=== PATIENT | male | born 1985 | race Caucasian/White ===

== ENCOUNTER 2017-08-19 12:27 | Emergency (ER) | payer MEDICAID ==
[2017-08-19 12:32] VITALS: BP 138/79
[2017-08-19] MEDS ORDERED: oxyCOD/ACETAMIN 5 MG/325 MG TABLET PO STA (13:36)
--- NOTE | 2017-08-19 13:38 | ED Physician Documentation ---
PD HPI HEENT - Stated complaint Stated Complaint: TOOTH PX - Chief complaint Chief Complaint: Heent - History obtained from History obtained from: Patient - History of Present Illness Timing - onset: Yesterday (1 days worth of dental pain which is now severe and kept him up all night from a left mandibular premolar, no fevers but he does have mild facial swelling.) Review of Systems Constitutional: denies: Fever, Chills Nose: denies: Rhinorrhea / runny nose, Congestion Throat: denies: Sore throat PD PAST MEDICAL HISTORY - Past Medical History Past Medical History: Yes Cardiovascular: Hypertension Respiratory: None Endocrine/Autoimmune: None GI: None : None Psych: Depression, Post traumatic stress disorder Musculoskeletal: None Derm: None - Past Surgical History Past Surgical History: Yes General: Hiatal hernia repair - Present Medications Home Medications: Ambulatory Orders Medication Instructions Recorded Confirmed Clindamycin [Cleocin] 300 mg PO Q6H 10 Days capsule 08/19/17 Oxycodone HCl/Acetaminophen 1 - 2 tab PO Q4H PRN #15 tablet 08/19/17 [Percocet 5-325 mg Tablet] - Allergies Allergies/Adverse Reactions: Allergies Allergy/AdvReac Type Severity Reaction Status Date / Time prednisone Allergy swelling Verified 08/19/17 13:16 - Social History Does the pt smoke?: Yes Smoking Status: Current every day smoker Does the pt drink ETOH?: Yes Does the pt have substance abuse?: No - Immunizations Immunizations are current?: No Immunizations: TDAP >10years/unknown - POLST Patient has POLST: No PD ED PE NORMAL - Vitals Vital signs reviewed: Yes - General General: Alert and oriented X 3, No acute distress - HEENT HEENT: Other (Generally poor dentition with a lot of big cavities, the tooth in question is a left mandibular premolar which is almost all cavity, and there is very mild overlying facial swelling but no trismus or sublingual edema.) - Neck Neck: Supple, no meningeal sign, No bony TTP - Neuro Neuro: Alert and oriented X 3, Normal speech Results - Vitals Vitals: Vital Signs - 24 hr 08/19/17 12:30 Temperature 36.6 C Heart Rate 100 Respiratory 18 Rate Blood Pressure 138/79 H O2 Saturation 96 Oxygen O2 Source Room air PD MEDICAL DECISION MAKING - Sepsis Event Vital Signs: Vital Signs - 24 hr 08/19/17 12:30 Temperature 36.6 C Heart Rate 100 Respiratory 18 Rate Blood Pressure 138/79 H O2 Saturation 96 Oxygen O2 Source Room air Departure - Departure Disposition: 01 Home, Self Care Clinical Impression: Pain due to dental caries Condition: Good Record reviewed to determine appropriate education?: Yes Instructions: ED Tooth Pain Prescriptions: Clindamycin [Cleocin] 300 mg PO Q6H 10 Days capsule Oxycodone HCl/Acetaminophen [Percocet 5-325 mg Tablet] 1 - 2 tab PO Q4H PRN #15 tablet PRN Reason: Pain Comments: It is very important that you follow-up with a dentist. When it comes to dental problems like yours, the emergency department can only offer a short- term solution to your long-term problem. A couple of low cost options for dental care include: [facility] in [place], calls [phone] for an appointment Or [facility] in [place], call [phone] for an appointment. Do not drink or drive while taking narcotic pain medication. Note that many narcotic pain relievers also contain Tylenol/acetaminophen. Please ensure that your total dose of acetaminophen from all sources does not exceed 3 g (3000 mg) per day. You may get constipated while on this medication. Take a stool softener such as Colace twice a day while you are on it. Also add an [id number] laxative such as senna or MiraLAX on any day that you do not have a bowel movement. If you received a narcotic pain medication or sedative while in the emergency department, do not drive for the next 24 hours. Your blood pressure was elevated today on check into the emergency department. This does not mean that you have hypertension, it is a common phenomenon to come to the emergency department and have elevated blood pressure. I recommend that you see your primary care physician within the week to have it rechecked when you are feeling better.
== END 2017-08-19 13:41 | disposition home or self-care (01) ==
LOC: ED 12:27
DX: K08.89 Other specified disorders of teeth and supporting structures (principal); K02.9 Dental caries, unspecified; I10 Essential (primary) hypertension; F17.200 Nicotine dependence, unspecified, uncomplicated
CPT/HCPCS: 99283; A9270

== ENCOUNTER 2018-01-01 02:45 | Emergency (ER) | payer MEDICAID ==
[2018-01-01 02:53] VITALS: BP 144/75
--- NOTE | 2018-01-01 03:40 | ED Physician Documentation ---
History of Present Illness - Stated complaint Stated Complaint: LT ARM PAIN - Chief complaint Chief Complaint: Ext Problem - History obtained from History obtained from: Patient, Family - History of Present Illness Timing: Today - Additonal information Additional information: 32-year-old male who has had a traumatic brain injury previously is brought into the emergency department by his mother with concerns of left arm pain. The patient indicates that he was playing Nintendo for about an hour prior to the onset of this throbbing sensation he has in his left arm. He denies any other specific symptoms he is not having sweats he is not having shortness of breath is not having lightheadedness. He does admit to some pain in his right upper chest for about 3 days prior to this that resolved without sequelae. Patient denies any recent URI symptoms he denies any cough or shortness of breath. He denies any modifying factors to the pain he had in his chest 3 days ago and he denies any modifying factors to the pain in his arm tonight. He states that it feels like there is a throbbing and he was unable to sleep. His mother is brought him here to the emergency department for evaluation. He has refused blood draw in the past and refuses blood draw today. Review of Systems Constitutional: denies: Fever, Chills, Myalgias Eyes: denies: Decreased vision Ears: denies: Ear pain Nose: denies: Rhinorrhea / runny nose, Congestion Throat: denies: Sore throat Cardiac: reports: Chest pain / pressure (3 days ago without modifying factors). denies: Palpitations Respiratory: denies: Dyspnea, Cough GI: denies: Abdominal Pain, Abdominal Swelling, Nausea, Vomiting : denies: Dysuria, Frequency Skin: denies: Rash Musculoskeletal: reports: Extremity pain. denies: Neck pain, Back pain, Joint pain, Extremity swelling, Joint swelling Neurologic: denies: Generalized weakness, Focal weakness, Numbness PD PAST MEDICAL HISTORY - Past Medical History Cardiovascular: Hypertension Respiratory: None Endocrine/Autoimmune: None GI: None : None Psych: Depression, Post traumatic stress disorder Musculoskeletal: None Derm: None - Past Surgical History Past Surgical History: Yes General: Hiatal hernia repair - Present Medications Home Medications: Ambulatory Orders Medication Instructions Recorded Confirmed Clindamycin [Cleocin] 300 mg PO Q6H 10 Days capsule 08/19/17 Oxycodone HCl/Acetaminophen 1 - 2 tab PO Q4H PRN #15 tablet 08/19/17 [Percocet 5-325 mg Tablet] - Allergies Allergies/Adverse Reactions: Allergies Allergy/AdvReac Type Severity Reaction Status Date / Time prednisone Allergy swelling Verified 08/19/17 13:16 - Social History Does the pt smoke?: Yes Smoking Status: Current every day smoker Does the pt drink ETOH?: Yes Does the pt have substance abuse?: No - Immunizations Immunizations are current?: No Immunizations: TDAP >10years/unknown - POLST Patient has POLST: No PD ED PE NORMAL - Vitals Vital signs reviewed: Yes (hypertensive ) - General General: No acute distress, Well developed/nourished - HEENT HEENT: Ears normal, Moist mucous membranes, Pharynx benign, Dentition benign - Neck Neck: Supple, no meningeal sign, No bony TTP - Cardiac Cardiac: RRR, No murmur - Respiratory Respiratory: No respiratory distress, Clear bilaterally, Other (no chest wall tenderness) - Abdomen Abdomen: Soft, Non tender - Back Back: No CVA TTP, No spinal TTP - Derm Derm: Normal color, Warm and dry, No rash - Extremities Extremities: No deformity, No edema - Neuro Neuro: referral coordinator 2-12 intact, No motor deficit, No sensory deficit, Normal speech Eye Opening: Spontaneous Motor: Obeys Commands Verbal: Oriented GCS Score: 15 - Psych Psych: Normal mood, Normal affect Results - Vitals Vitals: Vital Signs - 24 hr 01/01/18 02:50 Temperature 36.8 C Heart Rate 90 Respiratory 16 Rate Blood Pressure 144/75 H O2 Saturation 99 Oxygen O2 Source Room air - EKG (time done) 0331 Rate: Rate (enter#) (81) Rhythm: NSR Ischemia: ST elevation c/w repol Compare to prior EKG: Old EKG unavailable Computer interpretation: Agree with computer PD MEDICAL DECISION MAKING - ED course Complexity details: reviewed results, re-evaluated patient, considered differential, d/w patient, d/w family ED course: 32-year-old male with nonspecific symptoms of left arm throbbing after plane video games for 1 hour presents to the emergency department at 3:00 in the morning unable to sleep secondary to these throbbing pains in his arm. He denies any other modifying factors to the pain and denies any exertional component to the pain and denies any other specific symptoms related to the pain. He will not allow blood draw and he does have electric cardiogram showing J-point elevation. I do not believe there is any concern for myocardial infarction and I have shared my thoughts with the patient and his mother. Departure - Departure Disposition: 01 Home, Self Care Clinical Impression: Left arm pain Condition: Stable Instructions: ED Strain Muscle Ext Follow-Up: [facility] [Provider Group]
== END 2018-01-01 03:50 | disposition home or self-care (01) ==
LOC: ED 02:45
DX: M79.602 Pain in left arm (principal); I10 Essential (primary) hypertension; F17.200 Nicotine dependence, unspecified, uncomplicated; Z87.820 Personal history of traumatic brain injury
CPT/HCPCS: 93005; 99282; 99283

== ENCOUNTER 2018-05-28 01:30 | Emergency (ER) | payer MEDICAID ==
[2018-05-28] MEDS ORDERED: PROPARACAINE 0.5% OPHTH DROPS 15 ML RIGHTEYE STA (02:39)
[2018-05-28] MEDS ORDERED: AMOX/CLAV 875 MG/125 MG TABLET PO STA (02:51)
[2018-05-28] MEDS ORDERED: HYDROcod/ACET 5/325 Prepack 4 PO STA (02:51)
--- NOTE | 2018-05-28 02:54 | ED Physician Documentation ---
PD HPI HEENT - Stated complaint Stated Complaint: DENTAL PAIN - Chief complaint Chief Complaint: Heent - History obtained from History obtained from: Patient, Family - History of Present Illness Timing - onset: Today Timing - duration: Hours Timing - details: Abrupt onset, Still present Location: Tooth, Other (right eye) Improves: Medication Worsens: Swalllowing Associated symptoms: Rhinorrhea, Headache, Cough. No: Fever, Congestion Similar symptoms before: Diagnosis (abscessed tooth) Recently seen: Not recently seen - Additional information Additional information: 32-year-old male has developed a bad tooth on the right upper tooth is broken and he has pain associated with this that is coming and going. In addition the patient was injured this evening in his right eye when the edge of a plastic bag caught his eye. He feels that he might have an abrasion to his cornea. He has a foreign body sensation that is resolving now. Review of Systems Constitutional: denies: Fever, Chills, Myalgias Eyes: reports: Irritation. denies: Decreased vision Ears: denies: Ear pain Nose: reports: Congestion. denies: Rhinorrhea / runny nose Throat: reports: Dental pain / toothache. denies: Sore throat Cardiac: denies: Chest pain / pressure Respiratory: denies: Dyspnea, Cough PD PAST MEDICAL HISTORY - Past Medical History Cardiovascular: Hypertension Respiratory: None Endocrine/Autoimmune: None GI: None : None Psych: Depression, Post traumatic stress disorder Musculoskeletal: None Derm: None - Past Surgical History Past Surgical History: Yes General: Hiatal hernia repair - Present Medications Home Medications: Ambulatory Orders Medication Instructions Recorded Confirmed Clindamycin [Cleocin] 300 mg PO Q6H 10 Days capsule 08/19/17 Oxycodone HCl/Acetaminophen 1 - 2 tab PO Q4H PRN #15 tablet 08/19/17 [Percocet 5-325 mg Tablet] Amox/Clav 875/125 [Augmentin] 1 each PO Q12H #20 tablet 05/28/18 - Allergies Allergies/Adverse Reactions: Allergies Allergy/AdvReac Type Severity Reaction Status Date / Time prednisone Allergy swelling Verified 05/28/18 01:40 - Social History Does the pt smoke?: Yes Smoking Status: Current every day smoker Does the pt drink ETOH?: Yes Does the pt have substance abuse?: No - Immunizations Immunizations are current?: No Immunizations: TDAP >10years/unknown - POLST Patient has POLST: No PD ED PE NORMAL - Vitals Vital signs reviewed: Yes (low grade fever and hypertension ) - General General: Alert and oriented X 3, No acute distress, Well developed/nourished - HEENT HEENT: Atraumatic, PERRL, EOMI, Other (There is a broken right upper molar witho ut gingival irritation or swelling. 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 There is fluorscein uptake in the lateral quadrant with a superficial abrasion. ) - Neck Neck: Supple, no meningeal sign, No bony TTP - Respiratory Respiratory: No respiratory distress - Derm Derm: Normal color, Warm and dry, No rash - Extremities Extremities: No deformity, No edema - Neuro Neuro: Alert and oriented X 3, lens cementer 2-12 intact, No motor deficit, No sensory deficit, Normal speech Eye Opening: Spontaneous Motor: Obeys Commands Verbal: Oriented GCS Score: 15 - Psych Psych: Normal mood, Normal affect Results - Vitals Vitals: Vital Signs - 24 hr 05/28/18 01:36 Temperature 37.6 C H Heart Rate 93 Respiratory 18 Rate Blood Pressure 131/88 H O2 Saturation 99 Oxygen O2 Source Room air PD MEDICAL DECISION MAKING - ED course Complexity details: considered differential, d/w patient ED course: 32-year-old male with a corneal abrasion on the right and a broken right upper molar is placed onto some Augmentin and we have placed CAVIT to the broken tooth. Departure - Departure Disposition: 01 Home, Self Care Clinical Impression: Pain, dental Corneal abrasion, right Qualifiers: Encounter type: initial encounter Qualified Code(s): S05.01XA - Injury of conjunctiva and corneal abrasion without foreign body, right eye, initial encounter Condition: Stable Instructions: ED Tooth Pain, ED Eye Injury Corneal Abrasion Follow-Up: [facility] [Provider Group] Prescriptions: Amox/Clav 875/125 [Augmentin] 1 each PO Q12H #20 tablet
[2018-05-28 03:07] VITALS: BP 127/84
== END 2018-05-28 03:15 | disposition home or self-care (01) ==
LOC: ED 01:30
DX: S02.5XXA Fracture of tooth (traumatic), initial encounter for closed fracture (principal); S05.01XA Injury of conjunctiva and corneal abrasion without foreign body, right eye, initial encounter; W22.8XXA Striking against or struck by other objects, initial encounter; I10 Essential (primary) hypertension; F17.200 Nicotine dependence, unspecified, uncomplicated
CPT/HCPCS: 99283; A9270; J3490

== ENCOUNTER 2018-12-04 12:42 | Emergency (ER) | payer MEDICAID ==
[2018-12-04 12:56] VITALS: BP 115/67
--- NOTE | 2018-12-04 13:05 | ED Physician Documentation ---
PD HPI SKIN - Stated complaint Stated Complaint: RASH - Chief complaint Chief Complaint: Wound - History obtained from History obtained from: Patient - History of Present Illness Timing - onset: Other (Previously healthy 33-year-old gentleman has had about a week's history of a quite itchy rash mostly on the back of the thighs and right ankle. He works at home a [employer] and thinks he got it there.) Review of Systems Constitutional: denies: Fever, Chills, Myalgias Respiratory: denies: Dyspnea, Cough GI: denies: Abdominal Pain PD PAST MEDICAL HISTORY - Past Medical History Cardiovascular: Hypertension Respiratory: None Endocrine/Autoimmune: None GI: None : None Psych: Depression, Post traumatic stress disorder Musculoskeletal: None Derm: None - Past Surgical History Past Surgical History: Yes General: Hiatal hernia repair - Present Medications Home Medications: Ambulatory Orders Medication Instructions Recorded Confirmed Clindamycin [Cleocin] 300 mg PO Q6H 10 Days capsule 08/19/17 Oxycodone HCl/Acetaminophen 1 - 2 tab PO Q4H PRN #15 tablet 08/19/17 [Percocet 5-325 mg Tablet] Amox/Clav 875/125 [Augmentin] 1 each PO Q12H #20 tablet 05/28/18 Permethrin 5% Cream 1 applic TOP ONCE #2 tube 12/04/18 - Allergies Allergies/Adverse Reactions: Allergies Allergy/AdvReac Type Severity Reaction Status Date / Time prednisone Allergy swelling Verified 12/04/18 12:51 - Social History Does the pt smoke?: Yes Smoking Status: Current every day smoker Does the pt drink ETOH?: Yes Does the pt have substance abuse?: No - Immunizations Immunizations are current?: No Immunizations: TDAP >10years/unknown - POLST Patient has POLST: No PD ED PE NORMAL - Vitals Vital signs reviewed: Yes - General General: Alert and oriented X 3, No acute distress - Derm Derm: Other (Scabbed rash on the flexor creases of the wrist, lateral ankle and the top of the foot. Also the back of the thighs. Spares the palms and soles. Most consistent with scabies.) - Neuro Neuro: Alert and oriented X 3, Normal speech Results - Vitals Vitals: Vital Signs - 24 hr 12/04/18 12:51 Temperature 37 C Heart Rate 88 Respiratory 16 Rate Blood Pressure 115/67 O2 Saturation 99 Oxygen O2 Source Room air Departure - Departure Disposition: 01 Home, Self Care Clinical Impression: Scabies Condition: Good Record reviewed to determine appropriate education?: Yes Instructions: ED Scabies Follow-Up: [facility] [Provider Group] - Within 1 week Prescriptions: Permethrin 5% Cream 1 applic TOP ONCE #2 tube Comments: Follow-up with your primary care physician and your channel lip wetter. Return for new worsening symptoms.
== END 2018-12-04 13:12 | disposition home or self-care (01) ==
LOC: ED 12:42
DX: B86 Scabies (principal); I10 Essential (primary) hypertension; F17.200 Nicotine dependence, unspecified, uncomplicated
CPT/HCPCS: 99282; 99283

== ENCOUNTER 2018-12-13 13:06 | Emergency (ER) | payer MEDICAID ==
[2018-12-13 13:20] VITALS: BP 124/74
--- NOTE | 2018-12-13 14:30 | ED Physician Documentation ---
PD HPI SKIN - Stated complaint Stated Complaint: RASH - Chief complaint Chief Complaint: Wound - History obtained from History obtained from: Patient - History of Present Illness Timing - onset: Other (Seen here recently for scabies. The rash on arms and legs is much better, but still has a rash on the buttocks that is itchy.) Review of Systems Constitutional: reports: Reviewed and negative Cardiac: reports: Reviewed and negative Respiratory: reports: Reviewed and negative PD PAST MEDICAL HISTORY - Past Medical History Past Medical History: Yes Cardiovascular: Hypertension Respiratory: None Neuro: Other Endocrine/Autoimmune: None GI: None : None Psych: Depression, Post traumatic stress disorder Musculoskeletal: None Derm: None - Past Surgical History Past Surgical History: Yes General: Hiatal hernia repair - Present Medications Home Medications: Ambulatory Orders Medication Instructions Recorded Confirmed Clindamycin [Cleocin] 300 mg PO Q6H 10 Days capsule 08/19/17 Oxycodone HCl/Acetaminophen 1 - 2 tab PO Q4H PRN #15 tablet 08/19/17 [Percocet 5-325 mg Tablet] Amox/Clav 875/125 [Augmentin] 1 each PO Q12H #20 tablet 05/28/18 Permethrin 5% Cream 1 applic TOP ONCE #2 tube 12/04/18 Doxepin [SINEquan] 10 mg PO TID PRN #20 capsule 12/13/18 - Allergies Allergies/Adverse Reactions: Allergies Allergy/AdvReac Type Severity Reaction Status Date / Time prednisone Allergy swelling Verified 12/13/18 13:14 - Social History Does the pt smoke?: Yes Smoking Status: Current every day smoker Does the pt drink ETOH?: Yes Does the pt have substance abuse?: Yes Substance Use and Type: Marijuana - Immunizations Immunizations are current?: No Immunizations: TDAP >10years/unknown - POLST Patient has POLST: No PD ED PE NORMAL - Vitals Vital signs reviewed: Yes - General General: Alert and oriented X 3, No acute distress, Well developed/nourished - Derm Derm: Other (molluscum on buttocks, no ext hemorrhoids) - Neuro Neuro: Alert and oriented X 3, Normal speech Results - Vitals Vitals: Vital Signs - 24 hr 12/13/18 13:14 Temperature 36.9 C Heart Rate 94 Respiratory 18 Rate Blood Pressure 124/74 O2 Saturation 100 Oxygen O2 Source Room air Departure - Departure Disposition: 01 Home, Self Care Clinical Impression: Molluscum contagiosum Condition: Good Record reviewed to determine appropriate education?: Yes Instructions: ED Molluscum Contagiosum Follow-Up: [facility] [Provider Group] Prescriptions: Doxepin [SINEquan] 10 mg PO TID PRN #20 capsule PRN Reason: Itching
== END 2018-12-13 14:36 | disposition home or self-care (01) ==
LOC: ED 13:06
DX: B08.1 Molluscum contagiosum (principal); I10 Essential (primary) hypertension; F17.200 Nicotine dependence, unspecified, uncomplicated
CPT/HCPCS: 99282; 99283

== ENCOUNTER 2018-12-25 12:14 | Emergency (ER) | payer MEDICAID ==
--- NOTE | 2018-12-25 12:32 | ED Physician Documentation ---
History of Present Illness - Stated complaint Stated Complaint: NO FEELING IN TESTES - Chief complaint Chief Complaint: MHE - Additonal information Additional information: This is a 33-year-old male with history of PTSD and depression who presents with 2 complaints. First he states that he is lacking sensation in his bilateral testicles. He states in the past he had a testicular torsion which was detorsed manually, and since that time around 15 years ago has had a lack of sensation in his bilateral testicles. He is concerned that has testicles that are in his scrotum. He denies any pain or dysuria, no lesions. Secondary complaint is that he is been feeling suicidal from time to time. He is not suicidal currently, and he states that he does not have a plan currently, in the past is thought about jumping [place] the [place]. He uses marijuana, otherwise denies drug use. PD PAST MEDICAL HISTORY - Past Medical History Cardiovascular: Hypertension Respiratory: None Neuro: Other Endocrine/Autoimmune: None GI: None : None Psych: Depression, Post traumatic stress disorder Musculoskeletal: None Derm: None - Past Surgical History Past Surgical History: Yes General: Hiatal hernia repair - Present Medications Home Medications: Ambulatory Orders Medication Instructions Recorded Confirmed Clindamycin [Cleocin] 300 mg PO Q6H 10 Days capsule 08/19/17 Oxycodone HCl/Acetaminophen 1 - 2 tab PO Q4H PRN #15 tablet 08/19/17 [Percocet 5-325 mg Tablet] Amox/Clav 875/125 [Augmentin] 1 each PO Q12H #20 tablet 05/28/18 Permethrin 5% Cream 1 applic TOP ONCE #2 tube 12/04/18 Doxepin [SINEquan] 10 mg PO TID PRN #20 capsule 12/13/18 - Allergies Allergies/Adverse Reactions: Allergies Allergy/AdvReac Type Severity Reaction Status Date / Time prednisone Allergy swelling Verified 12/13/18 13:14 - Social History Does the pt smoke?: Yes Smoking Status: Current every day smoker Does the pt drink ETOH?: Yes Does the pt have substance abuse?: Yes - Immunizations Immunizations are current?: No Immunizations: TDAP >10years/unknown - POLST Patient has POLST: No Results - Vitals Vitals: Oxygen O2 Source Room air - Labs Labs: Laboratory Tests 12/25/18 12/25/18 12/25/18 12:33 13:31 13:31 WBC 5.4 RBC 4.81 Hgb 15.7 Hct 44.1 MCV 91.7 MCH 32.6 H MCHC 35.6 RDW 11.6 L Plt Count 205 MPV 9.7 Neut # (Auto) 4.2 Lymph # (Auto) 0.8 L [place] # (Auto) 0.3 Eos # (Auto) 0.1 Baso # (Auto) 0.0 Absolute Nucleated RBC 0.00 Nucleated RBC % 0.0 Sodium 139 Potassium 4.3 Chloride 104 Carbon Dioxide 26 Anion Gap 9.0 BUN 16 Creatinine 1.1 Estimated GFR (MDRD) 76 L Glucose 108 H Calcium 9.2 Total Bilirubin 1.1 H AST 18 ALT 16 Alkaline Phosphatase 68 Total Protein 7.7 Albumin 4.6 Globulin 3.1 Albumin/Globulin Ratio 1.5 Lipase 21 L TSH Urine Color YELLOW Urine Clarity CLEAR Urine pH 6.5 Ur Specific [place] 1.020 Urine Protein TRACE Urine Glucose (UA) NEGATIVE Urine Ketones 40 H Urine Occult Blood TRACE-INTA Urine Nitrite NEGATIVE Urine Bilirubin NEGATIVE Urine Urobilinogen 0.2 (NORMAL) Ur Leukocyte Esterase NEGATIVE Ur Microscopic Review NOT INDICATED Urine Culture Comments NOT INDICATED Salicylates < 6.0 Urine Opiates Screen NEGATIVE Ur Oxycodone Screen NEGATIVE Urine Methadone Screen NEGATIVE Ur Propoxyphene Screen NEGATIVE Acetaminophen < 10 L Ur Barbiturates Screen NEGATIVE Ur Tricyclics Screen POSITIVE H Ur Phencyclidine Scrn NEGATIVE Ur Amphetamine Screen NEGATIVE U Methamphetamines Scrn NEGATIVE U Benzodiazepines Scrn NEGATIVE Urine Cocaine Screen NEGATIVE U Cannabinoids Screen POSITIVE H Ethyl Alcohol < 5.0 12/25/18 13:31 WBC RBC Hgb Hct MCV MCH MCHC RDW Plt Count MPV Neut # (Auto) Lymph # (Auto) [place] # (Auto) Eos # (Auto) Baso # (Auto) Absolute Nucleated RBC Nucleated RBC % Sodium Potassium Chloride Carbon Dioxide Anion Gap BUN Creatinine Estimated GFR (MDRD) Glucose Calcium Total Bilirubin AST ALT Alkaline Phosphatase Total Protein Albumin Globulin Albumin/Globulin Ratio Lipase TSH 0.66 Urine Color Urine Clarity Urine pH Ur Specific [place] Urine Protein Urine Glucose (UA) Urine Ketones Urine Occult Blood Urine Nitrite Urine Bilirubin Urine Urobilinogen Ur Leukocyte Esterase Ur Microscopic Review Urine Culture Comments Salicylates Urine Opiates Screen Ur Oxycodone Screen Urine Methadone Screen Ur Propoxyphene Screen Acetaminophen Ur Barbiturates Screen Ur Tricyclics Screen Ur Phencyclidine Scrn Ur Amphetamine Screen U Methamphetamines Scrn U Benzodiazepines Scrn Urine Cocaine Screen U Cannabinoids Screen Ethyl Alcohol - Rads (name of study) US scrotum Radiology: Other (Normal ultrasound without testicular abnormalities) PD MEDICAL DECISION MAKING - ED course Complexity details: considered differential (Torsion, orchitis, UTI, depressin, anxiety, TBI) ED course: Regarding patient's testicular complaint, his testicles appear normal on exam and his US also is unremarkable. He also does have sensation intact to light touch on his scrotum. He was very relieved to hear that his testicles were not . UA shows no signs of infection. Labs are unrevealing. 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 He is not suicidal at this moment, and states it comes and goes. He is upbeat and cooperative on exam. In fact, while I was interviewing him the patient in the next bed became agitated and Rico told me "I'm not crazy like that jose antonio, I'm really not that bad." Social work was consulted and was able to make a safety plan with the patient and feels that he is appropriate for outpatient follow up. I agree and reinforced available resources and return precautions. Patient agreed and was discharged home in the care of his partner. Departure - Departure Disposition: 01 Home, Self Care Clinical Impression: Suicidal ideation, Testicular discomfort Condition: Good Instructions: Suicide Warning Signs Self Follow-Up: Your,PCP and [facility] [Other] Comments: Your testicular ultrasound looked normal today, your labs are reassuring. Please follow-up with your mental health provider on your depression and suicidal thoughts, return to the emergency department if you are having any wo rsening. Please avoid drugs and alcohol, as this can worsen your mental health issues. is the number for the 13/09 suicide prevention hotline Discharge Date/Time: 12/25/18 16:41
[2018-12-25 13:37] LABS: BASOPHILS % (AUTO) 0.6 %; EOSINOPHILS # (AUTO) 0.1 10^3/uL (0.0-0.7); EOSINOPHILS % (AUTO) 1.5 %; HGB - HEMOGLOBIN 15.7 g/dL (14.0-18.0); LYMPHOCYTES # (AUTO) 0.8 10^3/uL (1.5-3.5); LYMPHOCYTES % (AUTO) 14.3 %; MEAN CORPUSCULAR HEMOGLOBIN 32.6 pg (27.0-31.0); MEAN CORPUSCULAR HGB CONC 35.6 g/dL (32.0-36.0); MEAN CORPUSCULAR VOLUME 91.7 fL (80.0-94.0); MEAN PLATELET VOLUME 9.7 fL (7.4-11.4); MONOCYTES # (AUTO) 0.3 10^3/uL (0.0-1.0); MONOCYTES % (AUTO) 6.1 %; NEUTROPHILS # (AUTO) 4.2 10^3/uL (1.5-6.6); NEUTROPHILS % (AUTO) 77.1 %; PLT - PLATELET COUNT 205 10^3/uL (130-450); RED BLOOD COUNT 4.81 10^6/uL (4.70-6.10); RED CELL DISTRIBUTION WIDTH 11.6 % (12.0-15.0); WHITE BLOOD COUNT 5.4 x10^3/uL (4.8-10.8)
[2018-12-25 13:53] LABS: ACETAMINOPHEN < 10 ug/mL (10-30); ALBUMIN 4.6 g/dL (3.2-5.5); ALBUMIN/GLOBULIN RATIO 1.5 (1.0-2.2); ALKALINE PHOSPHATASE 68 IU/L (42-121); ALT ALANINE AMINOTRANSFERASE 16 IU/L (10-60); AST ASPARTATE AMINOTRANSFERASE 18 IU/L (10-42); BILIRUBIN,TOTAL 1.1 mg/dL (0.2-1.0); BUN - BLOOD UREA NITROGEN 16 mg/dL (6-20); CALCIUM 9.2 mg/dL (8.5-10.3); CARBON DIOXIDE - CO2 26 mmol/L (21-32); CHLORIDE 104 mmol/L (101-111); CREATININE 1.1 mg/dL (0.6-1.2); GFR - MDRD 76 (>89); GLUCOSE 108 mg/dL (70-100); LIPASE 21 U/L (22-51); SALICYLATE < 6.0 mg/dL; SODIUM 139 mmol/L (135-145); TOTAL PROTEIN 7.7 g/dL (6.7-8.2)
--- NOTE | 2018-12-25 15:01 | Ultrasound Report ---
Reason: Hx possible torsion, sensation changes in testicle Procedure Date: 12/25/2018 Accession Number: [id number] / [id number] Procedure: US - Testicle w/Doppler Limited CPT Code: Final Report FULL RESULT: EXAM: SCROTAL ULTRASOUND EXAM DATE: 12/25/2018 02:36 PM. CLINICAL HISTORY: Hx possible torsion, sensation changes in testicle. COMPARISON: None. TECHNIQUE: Real-time scanning was performed with static images obtained. Color-flow images were utilized. FINDINGS: Right: Testis: 4.2 x 1.9 x 2.7 cm. Normal size and echotexture. No mass, calcification, or abnormal blood flow. Epididymis: 1.1 cm. Normal size and echotexture. No mass or abnormal blood flow. Hydrocele: None. Varicocele: None. Left: Testis: 4.1 x 2 x 2.6 cm. Normal size and echotexture. No mass, calcification, or abnormal blood flow. Epididymis: 1.2 cm. Normal size and echotexture. No mass or abnormal blood flow. Hydrocele: None. Varicocele: None. IMPRESSION: 1. Normal ultrasound of the testes. No evidence for torsion. 2. No testicular masses. RADIA
[2018-12-25 15:53] LABS: MUDS CUTOFF CONCENTRATIONS CUTOFF CONC BELOW:
[2018-12-25 15:56] LABS: GLUCOSE, URINE (UA) NEGATIVE (NEGATIVE); KETONES,URINE (UA) 40 mg/dL (NEGATIVE); LEUKOCYTE ESTERASE, URINE NEGATIVE (NEGATIVE); NITRITE,URINE NEGATIVE (NEGATIVE); OCCULT BLOOD,URINE TRACE-INTA (NEGATIVE); PH,URINE 6.5 PH (5.0-7.5); PROTEIN,URINE TRACE mg/dL (NEGATIVE); UROBILINOGEN,URINE 0.2 (NORMAL) E.U./dL (NORMAL)
[2018-12-25 16:00] LABS: BILIRUBIN,URINE NEGATIVE (NEGATIVE); CLARITY,URINE CLEAR (CLEAR); ICTOTEST,URINE NEGATIVE
[2018-12-25 16:07] LABS: AMPHETAMINE SCREEN,URINE NEGATIVE (NEGATIVE); BENZODIAZEPINES SCREEN, URINE NEGATIVE (NEGATIVE); COCAINE SCREEN URINE NEGATIVE (NEGATIVE); METHADONE SCREEN, URINE NEGATIVE (NEGATIVE); METHAMPHETAMINES SCREEN, URINE NEGATIVE (NEGATIVE); OPIATE SCREEN, URINE NEGATIVE (NEGATIVE); OXYCODONE SCREEN, URINE NEGATIVE (NEGATIVE); PROPOXYPHENE SCREEN, URINE NEGATIVE (NEGATIVE); TRICYCLIC ANTIDEPRESSANT,URINE POSITIVE (NEGATIVE)
[2018-12-25 16:31] VITALS: BP 136/82
== END 2018-12-25 16:41 | disposition home or self-care (01) ==
LOC: ED 12:14
DX: R45.851 Suicidal ideations (principal); R39.9 Unspecified symptoms and signs involving the genitourinary system; I10 Essential (primary) hypertension; F17.200 Nicotine dependence, unspecified, uncomplicated
CPT/HCPCS: 36415; 76870; 80053; 80306; 80307; 80320; 80329; 81001; 81003; 83690; 84443; 85025; 87086; 93976; 99281; 99283

== ENCOUNTER 2019-07-16 11:18 | Emergency (ER) | payer MEDICAID ==
--- NOTE | 2019-07-16 14:10 | ED Physician Documentation ---
PD HPI SKIN - Stated complaint Stated Complaint: MALE /RASH - Chief complaint Chief Complaint: Wound - History obtained from History obtained from: Patient - Additional information Additional information: Patient comes emergency department complaining of a rash on his inner thighs. He states that he has noticed it for about the last 3 weeks and that it does not seem to be getting better, despite use of Gold screen and baby powder. He states that he is not been running any fevers. No pain, but the patient has had intense itching of the area. He states it involves his proximal medial thighs i ncluding up around his scrotum, and has been weeping and bright red. Patient denies any penile discharge. He states he does not have a rash anywhere else. No other complaints at this time. Review of Systems Ten Systems: 10 systems reviewed and negative Constitutional: reports: Reviewed and negative Eyes: reports: Reviewed and negative Ears: reports: Reviewed and negative Nose: reports: Reviewed and negative Throat: reports: Reviewed and negative Cardiac: reports: Reviewed and negative Respiratory: reports: Reviewed and negative GI: reports: Reviewed and negative : reports: Reviewed and negative Skin: reports: Rash Musculoskeletal: reports: Reviewed and negative Neurologic: reports: Reviewed and negative Psychiatric: reports: Reviewed and negative Endocrine: reports: Reviewed and negative Immunocompromised: reports: Reviewed and negative PD PAST MEDICAL HISTORY - Past Medical History Cardiovascular: Hypertension Respiratory: None Neuro: Other Endocrine/Autoimmune: None GI: None : None Psych: Depression, Post traumatic stress disorder Musculoskeletal: None Derm: None - Past Surgical History Past Surgical History: Yes General: Hiatal hernia repair - Present Medications Home Medications: Ambulatory Orders Medication Instructions Recorded Confirmed Clindamycin [Cleocin] 300 mg PO Q6H 10 Days capsule 08/19/17 Oxycodone HCl/Acetaminophen 1 - 2 tab PO Q4H PRN #15 tablet 08/19/17 [Percocet 5-325 mg Tablet] Amox/Clav 875/125 [Augmentin] 1 each PO Q12H #20 tablet 05/28/18 Permethrin 5% Cream 1 applic TOP ONCE #2 tube 12/04/18 Doxepin [SINEquan] 10 mg PO TID PRN #20 capsule 12/13/18 Nystatin 60 gm TP TID 7 Days #1 powder 07/16/19 - Allergies Allergies/Adverse Reactions: Allergies Allergy/AdvReac Type Severity Reaction Status Date / Time prednisone Allergy swelling Verified 07/16/19 11:27 - Social History Does the pt smoke?: Yes Smoking Status: Current every day smoker Does the pt drink ETOH?: Yes Does the pt have substance abuse?: Yes - Immunizations Immunizations are current?: No Immunizations: TDAP >10years/unknown - POLST Patient has POLST: No PD ED PE NORMAL - Vitals Vital signs reviewed: Yes - General General: Alert and oriented X 3, No acute distress - HEENT HEENT: Atraumatic, PERRL, EOMI, Moist mucous membranes - Neck Neck: Supple, no meningeal sign - Respiratory Respiratory: No respiratory distress - Male Male : Other (Rash as noted under skin.) - Derm Derm: Normal color, Warm and dry, Other (Patient has a beefy red rash involvingHis scrotum, medial proximal thighs, and creases. Rashes moist with satellite lesions. No induration or fluctuance.) - Extremities Extremities: No deformity - Neuro Neuro: Alert and oriented X 3 - Psych Psych: Normal mood, Normal affect Results - Vitals Vitals: Vital Signs - 24 hr 07/16/19 11:25 Temperature 36.4 C L Heart Rate 88 Respiratory 16 Rate Blood Pressure 124/74 O2 Saturation 100 Oxygen O2 Source Room air PD MEDICAL DECISION MAKING - ED course Complexity details: considered differential, d/w patient ED course: I discussed with the patient that his rash looks most consistent with Shaila, and as such, I am recommending topical treatment for this. I have given the patient a prescription for this. He does have a primary care physician, with whom he can follow-up. Departure - Departure Disposition: 01 Home, Self Care Clinical Impression: Shaila albicans infection Condition: Stable Instructions: ED Candidiasis Cutaneous Prescriptions: Nystatin 60 gm TP TID 7 Days #1 powder
[2019-07-16 14:30] VITALS: BP 100/67
== END 2019-07-16 14:37 | disposition home or self-care (01) ==
LOC: ED 11:18
DX: B37.9 Candidiasis, unspecified (principal); I10 Essential (primary) hypertension; F17.200 Nicotine dependence, unspecified, uncomplicated
CPT/HCPCS: 99283; 99284

== ENCOUNTER 2020-02-18 04:46 | Emergency (ER) | payer MEDICAID, MEDICARE ==
[2020-02-18 04:54] VITALS: BP 151/98
[2020-02-18] MEDS ORDERED: HYDROcod/ACETAM 5/325 MG TABLET PO STA (05:01)
[2020-02-18] MEDS ORDERED: AMOXICILLIN 250 MG CAPSULE PO STA (05:01)
--- NOTE | 2020-02-18 05:05 | ED Physician Documentation ---
History of Present Illness - Stated complaint Stated Complaint: TOOTH PX - Chief complaint Chief Complaint: Heent - History obtained from History obtained from: Patient - Additonal information Additional information: Pt comes to the emergency department with chief complaint of tooth pain after eating an almond candy bar. He states that he already has severely decayed teeth but that he has not gone to the dentist recently. He does have a dentist and look on her that he sees and states that they have a walk-in clinic that he can go to. He states he is mainly here because he has tried everything at home for the pain and cannot get under control, and he is also worried that he needs antibiotics. No fevers or facial swelling. No drainage. No other complaints at this time. Review of Systems Ten Systems: 10 systems reviewed and negative Constitutional: reports: Reviewed and negative Eyes: reports: Reviewed and negative Ears: reports: Reviewed and negative Nose: reports: Reviewed and negative Throat: reports: Dental pain / toothache, Reviewed and negative Cardiac: reports: Reviewed and negative Respiratory: reports: Reviewed and negative GI: reports: Reviewed and negative : reports: Reviewed and negative Skin: reports: Reviewed and negative Musculoskeletal: reports: Reviewed and negative Neurologic: reports: Reviewed and negative Psychiatric: reports: Reviewed and negative Endocrine: reports: Reviewed and negative Immunocompromised: reports: Reviewed and negative PD PAST MEDICAL HISTORY - Past Medical History Cardiovascular: Hypertension Respiratory: None Neuro: Other Endocrine/Autoimmune: None GI: None : None Psych: Depression, Post traumatic stress disorder Musculoskeletal: None Derm: None - Past Surgical History Past Surgical History: Yes General: Hiatal hernia repair - Present Medications Home Medications: Ambulatory Orders Medication Instructions Recorded Confirmed Clindamycin [Cleocin] 300 mg PO Q6H 10 Days capsule 08/19/17 Oxycodone HCl/Acetaminophen 1 - 2 tab PO Q4H PRN #15 tablet 08/19/17 [Percocet 5-325 mg Tablet] Amox/Clav 875/125 [Augmentin] 1 each PO Q12H #20 tablet 05/28/18 Permethrin 5% Cream 1 applic TOP ONCE #2 tube 12/04/18 Doxepin [SINEquan] 10 mg PO TID PRN #20 capsule 12/13/18 Nystatin 60 gm TP TID 7 Days #1 powder 07/16/19 Amoxicillin 500 mg PO TID 7 Days #21 capsule 02/18/20 HYDROcod/ACETAM 5/325 [[place] 5/325] 1 - 2 ea PO Q6H PRN #15 tablet 02/18/20 - Allergies Allergies/Adverse Reactions: Allergies Allergy/AdvReac Type Severity Reaction Status Date / Time prednisone Allergy swelling Verified 07/16/19 11:27 - Social History Does the pt smoke?: Yes Smoking Status: Current every day smoker Does the pt drink ETOH?: Yes Does the pt have substance abuse?: Yes - Immunizations Immunizations are current?: No Immunizations: TDAP >10years/unknown - POLST Patient has POLST: No PD ED PE NORMAL - Vitals Vital signs reviewed: Yes - General General: Alert and oriented X 3, No acute distress - HEENT HEENT: Atraumatic, PERRL, EOMI, Moist mucous membranes, Other (Poor dentition with multiple severely decayed teeth. Gingiva are beefy red, but not edematous. No facial edema, fluctuance, or mass.) - Neck Neck: Supple, no meningeal sign - Respiratory Respiratory: No respiratory distress - Derm Derm: Warm and dry - Extremities Extremities: No deformity - Neuro Neuro: Alert and oriented X 3 - Psych Psych: Normal mood, Normal affect Results - Vitals Vitals: Vital Signs - 24 hr 02/18/20 04:52 Temperature 36.9 C Heart Rate 99 Respiratory 18 Rate Blood Pressure 151/98 H O2 Saturation 99 Oxygen O2 Source Room air PD MEDICAL DECISION MAKING - ED course Complexity details: considered differential, d/w patient ED course: Patient was started on amoxicillin and given a dose of Vicodin here in the emergency department. I have discussed with him that he will need to go and see his dentist and determine the next course of action. I have given him prescription for his antibiotics and for pain medication as well. We have discussed the usual indications for return. Departure - Departure Disposition: 01 Home, Self Care Clinical Impression: Pain due to dental caries Condition: Stable Instructions: ED Tooth Pain Prescriptions: Amoxicillin 500 mg PO TID 7 Days #21 capsule HYDROcod/ACETAM 5/325 [[place] 5/325] 1 - 2 ea PO Q6H PRN #15 tablet PRN Reason: Pain
== END 2020-02-18 05:11 | disposition home or self-care (01) ==
LOC: ED 04:46
DX: K02.9 Dental caries, unspecified (principal); K08.89 Other specified disorders of teeth and supporting structures; I10 Essential (primary) hypertension; F17.200 Nicotine dependence, unspecified, uncomplicated
CPT/HCPCS: 99282; 99283; A9270

== ENCOUNTER 2020-02-20 21:01 | Emergency (ER) | payer MEDICAID ==
[2020-02-20] MEDS ORDERED: AMOX/CLAV 875 MG/125 MG TABLET PO STA (21:42)
--- NOTE | 2020-02-20 21:44 | ED Physician Documentation ---
PD HPI HEENT - Stated complaint Stated Complaint: MOUTH WOUND - Chief complaint Chief Complaint: Heent - History obtained from History obtained from: Patient - History of Present Illness Timing - onset: How many days ago (55) Timing - duration: Days Timing - details: Gradual onset, Still present Location: Tooth Improves: Medication Associated symptoms: Facial swelling. No: Fever, Congestion, Rhinorrhea, Trismus, Unable to swallow, Swollen nodes, Headache, Cough Similar symptoms before: Diagnosis (dental abscess) Recently seen: Emergency Dept, Other (seen by dentist) - Additional information Additional information: 34-year-old male has had swelling and pain to a left premolar and he has been placed on amoxicillin and despite this he has not had improvement in his pain and is developed drainage from the area. He is gone in to see the dentist is stated that he cannot work on him until the infection was under control and recommended a stronger antibiotic. The patient was examined outside of the dental office. Review of Systems Constitutional: denies: Fever Eyes: denies: Decreased vision Ears: denies: Ear pain Nose: denies: Rhinorrhea / runny nose, Congestion Throat: reports: Dental pain / toothache. denies: Sore throat Cardiac: denies: Chest pain / pressure Respiratory: denies: Dyspnea, Cough PD PAST MEDICAL HISTORY - Past Medical History Past Medical History: Yes Cardiovascular: Hypertension Respiratory: None Neuro: Other Endocrine/Autoimmune: None GI: None : None HEENT: None Psych: Depression, Post traumatic stress disorder Musculoskeletal: None Derm: None - Past Surgical History Past Surgical History: Yes General: Hiatal hernia repair - Present Medications Home Medications: Ambulatory Orders Medication Instructions Recorded Confirmed Amoxicillin 500 mg PO TID 7 Days #21 capsule 02/18/20 02/20/20 HYDROcod/ACETAM 5/325 [[place] 5/325] 1 - 2 ea PO Q6H PRN #15 tablet 02/18/20 02/20/20 Amox/Clav 875/125 [Augmentin] 1 each PO Q12H #20 tablet 02/20/20 - Allergies Allergies/Adverse Reactions: Allergies Allergy/AdvReac Type Severity Reaction Status Date / Time prednisone Allergy swelling Verified 02/20/20 21:15 - Social History Does the pt smoke?: Yes Smoking Status: Current every day smoker Does the pt drink ETOH?: Yes Does the pt have substance abuse?: Yes - Immunizations Immunizations are current?: No Immunizations: TDAP >10years/unknown - POLST Patient has POLST: No PD ED PE NORMAL - Vitals Vital signs reviewed: Yes (tachy and hypertensive ) - General General: Alert and oriented X 3, No acute distress, Well developed/nourished - HEENT HEENT: Atraumatic, PERRL, EOMI, Other (There is poor dentition in general with multiple missing and broken teeth. On the buccal side of #11 on the gingiva there is an area of drainage without mass or fluctuance. This is further unroofed with an 18 gauge needle without much additional drainage. ) - Neck Neck: Supple, no meningeal sign, No bony TTP - Respiratory Respiratory: No respiratory distress - Derm Derm: Normal color, Warm and dry, No rash - Extremities Extremities: No deformity, No edema - Neuro Neuro: Alert and oriented X 3, order taker 2-12 intact, No motor deficit, No sensory deficit, Normal speech Eye Opening: Spontaneous Motor: Obeys Commands Verbal: Oriented GCS Score: 15 - Psych Psych: Normal mood, Normal affect Results - Vitals Vitals: Vital Signs - 24 hr 02/20/20 02/20/20 02/20/20 21:11 21:47 21:53 Temperature 36.6 C Heart Rate 118 H 100 Respiratory 16 16 16 Rate Blood Pressure 154/86 H 126/88 H O2 Saturation 99 99 Oxygen O2 Source Room air PD MEDICAL DECISION MAKING - ED course Complexity details: considered differential, d/w patient ED course: 34-year-old male with a dental abscess has not had improvement on amoxicillin and his antibiotics changed to Augmentin. He also has the area unroofed here in the emergency department with an 18-gauge needle. Departure - Departure Disposition: 01 Home, Self Care Clinical Impression: Dental abscess Condition: Stable Instructions: ED Abscess Dental Follow-Up: [facility] [Provider Group] Prescriptions: Amox/Clav 875/125 [Augmentin] 1 each PO Q12H #20 tablet Discharge Date/Time: 02/20/20 21:54
[2020-02-20 21:48] VITALS: BP 126/88
== END 2020-02-20 21:54 | disposition home or self-care (01) ==
LOC: ED 21:01
DX: K04.7 Periapical abscess without sinus (principal); I10 Essential (primary) hypertension; F17.200 Nicotine dependence, unspecified, uncomplicated
CPT/HCPCS: 41800; 99282; 99284; A9270

== ENCOUNTER 2020-03-04 11:39 | Emergency (ER) | payer MEDICAID ==
--- NOTE | 2020-03-04 14:06 | ED Physician Documentation ---
History of Present Illness - Stated complaint Stated Complaint: MITES - Chief complaint Chief Complaint: General - Additonal information Additional information: 34-year-old male presents the emergency department for evaluation of a rash. He reports that he has linear crusting lesions on the dorsum of his right hand and right foot as well as in his area. He has been applying a nystatin cream but it is not making the rash better. Intensely pruritic and worse at night. He is concerned that he may have skin mites/scabies Rash began about 2 weeks ago Review of Systems Constitutional: reports: Reviewed and negative Eyes: reports: Reviewed and negative Ears: reports: Reviewed and negative Nose: reports: Reviewed and negative Throat: reports: Reviewed and negative Cardiac: reports: Reviewed and negative Respiratory: reports: Reviewed and negative GI: reports: Reviewed and negative : reports: Reviewed and negative Skin: reports: Rash Musculoskeletal: reports: Reviewed and negative PD PAST MEDICAL HISTORY - Past Medical History Past Medical History: Yes Cardiovascular: Hypertension Respiratory: None Neuro: Other Endocrine/Autoimmune: None GI: None : None HEENT: None Psych: Depression, Post traumatic stress disorder Musculoskeletal: None Derm: None - Past Surgical History Past Surgical History: Yes General: Hiatal hernia repair - Present Medications Home Medications: Ambulatory Orders Medication Instructions Recorded Confirmed Amoxicillin 500 mg PO TID 7 Days #21 capsule 02/18/20 02/20/20 HYDROcod/ACETAM 5/325 [[place] 5/325] 1 - 2 ea PO Q6H PRN #15 tablet 02/18/20 02/20/20 Amox/Clav 875/125 [Augmentin] 1 each PO Q12H #20 tablet 02/20/20 Permethrin 5% Cream 60 applic TOP ONCE 1 Days #1 tube 03/04/20 - Allergies Allergies/Adverse Reactions: Allergies Allergy/AdvReac Type Severity Reaction Status Date / Time prednisone Allergy swelling Verified 03/04/20 11:45 - Social History Does the pt smoke?: Yes Smoking Status: Current every day smoker Does the pt drink ETOH?: Yes Does the pt have substance abuse?: Yes - Immunizations Immunizations are current?: No Immunizations: TDAP >10years/unknown - POLST Patient has POLST: No PD ED PE EXPANDED - Derm Derm: Rash (Pruritic dry scabbing lesions in the webbing of right and left hand and dorsum of right foot. Nonvesicular.) Results - Vitals Vitals: Vital Signs - 24 hr 03/04/20 11:46 Temperature 37.2 C Oxygen O2 Source Room air PD MEDICAL DECISION MAKING - ED course Complexity details: reviewed results, re-evaluated patient, d/w patient ED course: 34-year-old male presents the emergency department with 2 weeks of a rash that is dry, scabbing and linear in the webbing of his hands dorsum of foot. He had been prescribed nystatin powder without relief of the rash. I suspect that he likely has scabies infestation. Will prescribe permethrin cream as well as give 1 refill. Routine care and treatment discussed. Continue follow-up with primary care provider Departure - Departure Disposition: Home, Self Care Clinical Impression: Scabies Condition: Stable Record reviewed to determine appropriate education?: Yes Instructions: ED Scabies Prescriptions: Permethrin 5% Cream 60 applic TOP ONCE 1 Days #1 tube Comments: Rico as we discussed the rash is very suspicious for scabies. I would like you to fill the prescription for the permethrin cream. Leave it in place on the entirety of your body for 12 hours. During this time wash 100% of your bedding and clothing in very hot water. This should cause the rash to dissipate over the next week. If not better I have written a refill for 1 more application of the permethrin. If still not better following that return to the ER or see your primary care provider
== END 2020-03-04 14:38 | disposition home or self-care (01) ==
LOC: ED 11:39
DX: B86 Scabies (principal); I10 Essential (primary) hypertension; F17.200 Nicotine dependence, unspecified, uncomplicated
CPT/HCPCS: 99281; 99282

== ENCOUNTER 2020-06-21 20:16 | Emergency (ER) | payer MEDICAID ==
[2020-06-21 20:29] VITALS: BP 130/65
[2020-06-21] MEDS ORDERED: BACITRACIN ZINC OINT 1 PACKET TOP STA (20:38)
[2020-06-21] MEDS ORDERED: HYDROcod/ACET 5/325 Prepack 4 PO STA (20:38)
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
--- OUTSIDE RECORDS SUMMARY | 2020-06-21 20:53 | EXTERNAL MEDICAL SUMMARY RPT | Continuity of Care Document ---
:1985 Demographics Phone Unavailable Preferred Language Unknown Marital Status Unknown Gnosticist Affiliation Unknown Race Unknown Ethnic Group Unknown Author Organization [facility] Address [address] [place] [address] Phone Social History date description facility [id number]
== END 2020-06-21 21:02 | disposition home or self-care (01) ==
LOC: ED 20:16
DX: S09.90XA Unspecified injury of head, initial encounter (principal); S70.01XA Contusion of right hip, initial encounter; S50.311A Abrasion of right elbow, initial encounter; S80.211A Abrasion, right knee, initial encounter; V00.131A Fall from skateboard, initial encounter; Y93.51 Activity, roller skating (inline) and skateboarding; Y92.410 Unspecified street and highway as the place of occurrence of the external cause; I10 Essential (primary) hypertension; F17.200 Nicotine dependence, unspecified, uncomplicated
CPT/HCPCS: 99282; 99284; A9270

== ENCOUNTER 2020-12-10 10:43 | Emergency (ER) | payer MEDICAID ==
[2020-12-10 11:02] VITALS: BP 119/73
--- NOTE | 2020-12-10 12:09 | ED Physician Documentation ---
History of Present Illness - Stated complaint Stated Complaint: FOREIGN OBJECT IN R EAR - Chief complaint Chief Complaint: Heent - History obtained from History obtained from: Patient - Additonal information Additional information: Patient is a 35-year-old male who presented after being concerned he may have had a piece of Q-tip in his right ear. He part of the Q-tip broke off on his ear, he flushed it with hydrogen peroxide and then came into the ER. He has no ear pain at this time, no change in hearing, no ear drainage. No other concerns today. Review of Systems Ten Systems: 10 systems reviewed and negative Ears: reports: Foreign body (Ear) PD PAST MEDICAL HISTORY - Past Medical History Past Medical History: Yes Cardiovascular: Hypertension Respiratory: None Neuro: None Endocrine/Autoimmune: None GI: None : None HEENT: Chronic vision loss Psych: Depression, Post traumatic stress disorder Musculoskeletal: None Derm: None - Past Surgical History Past Surgical History: Yes General: Hiatal hernia repair HEENT: Other - Present Medications Home Medications: Ambulatory Orders Medication Instructions Recorded Confirmed Ciproflox/Dexameth Otic Drops 4 drops OT BID #7.5 ml 12/10/20 [Ciprodex Otic Drops] - Allergies Allergies/Adverse Reactions: Allergies Allergy/AdvReac Type Severity Reaction Status Date / Time prednisone Allergy swelling Verified 12/10/20 11:02 - Social History Does the pt smoke?: Yes Smoking Status: Current every day smoker Does the pt drink ETOH?: Yes Does the pt have substance abuse?: No - Immunizations Immunizations are current?: No Immunizations: TDAP >10years/unknown - POLST Patient has POLST: No PD ED PE NORMAL - Vitals Vital signs reviewed: Yes - General General: Alert and oriented X 3, No acute distress, Well developed/nourished - HEENT HEENT: Atraumatic, Ears normal (TMs intact bilaterally, no obvious foreign body in the right ear, does have a small abrasion of the right ear canal, no current swelling or drainage. No mastoid tenderness bilaterally.), Moist mucous membranes, Pharynx benign - Neck Neck: Supple, no meningeal sign, No adenopathy, No JVD - Derm Derm: Normal color, Warm and dry, No rash - Neuro Neuro: Alert and oriented X 3 Eye Opening: Spontaneous Motor: Obeys Commands Verbal: Oriented GCS Score: 15 - Psych Psych: Normal mood, Normal affect Results - Vitals Vitals: Vital Signs - 24 hr 12/10/20 10:59 Temperature 36.9 C Heart Rate 87 Respiratory 16 Rate Blood Pressure 119/73 O2 Saturation 100 Oxygen O2 Source Room air PD MEDICAL DECISION MAKING - ED course Complexity details: d/w patient ED course: 35-year-old male who presented with concern for foreign body in the right ear. On physical exam he had no visible foreign body, tympanic membrane intact and he did have a small abrasion on the right ear canal. I have prescribed him Ciprodex but advised that he only needs to use this if he develops pain, drainage or swelling. If new or worsening symptoms return to ER. Patient encouraged not to use Q-tips in the future. Departure - Departure Disposition: 01 Home, Self Care Clinical Impression: Foreign body in ear Qualifiers: Encounter type: initial encounter Laterality: right Qualified Code(s): T16.1XXA - Foreign body in right ear, initial encounter Condition: Good Instructions: ED Foreign Body Ear Canal Prescriptions: Ciproflox/Dexameth Otic Drops [Ciprodex Otic Drops] 4 drops OT BID #7.5 ml Comments: You presented with concern for piece of a Q-tip in the right ear. On ear exam I did not see anything significant in the right ear anything that could be removed. Your tympanic membrane also known as the eardrum is intact. You had a small abrasion of the ear canal. This is likely from a Q-tip. Advised that you can use the Ciprodex eardrops only if the ear is aching, feels swollen or feel like you have drainage from the ear, otherwise you do not need to last picker this prescription. Recommend avoiding abuse in the future.
== END 2020-12-10 12:16 | disposition home or self-care (01) ==
LOC: ED 10:43
DX: S00.411A Abrasion of right ear, initial encounter (principal); X58.XXXA Exposure to other specified factors, initial encounter; I10 Essential (primary) hypertension; F17.200 Nicotine dependence, unspecified, uncomplicated
CPT/HCPCS: 99282; 99283

== ENCOUNTER 2021-01-19 08:00 | Outpatient (CLI) | payer MEDICAID ==
[2021-01-19 12:25] LABS: ESTIMATED AVERAGE GLUCOSE 97 mg/dL (70-100)
[2021-01-19 12:30] LABS: BASOPHILS % (AUTO) 1.2 %; EOSINOPHILS % (AUTO) 0.3 %; HCT - HEMATOCRIT 45.3 % (42.0-52.0); HGB - HEMOGLOBIN 16.2 g/dL (14.0-18.0); LYMPHOCYTES # (AUTO) 0.7 10^3/uL (1.5-3.5); LYMPHOCYTES % (AUTO) 21.2 %; MEAN CORPUSCULAR HEMOGLOBIN 32.6 pg (27.0-31.0); MEAN CORPUSCULAR HGB CONC 35.8 g/dL (32.0-36.0); MEAN CORPUSCULAR VOLUME 91.1 fL (80.0-94.0); MEAN PLATELET VOLUME 10.1 fL (7.4-11.4); MONOCYTES # (AUTO) 0.3 10^3/uL (0.0-1.0); NEUTROPHILS # (AUTO) 2.3 10^3/uL (1.5-6.6); PLT - PLATELET COUNT 252 10^3/uL (130-450); RED BLOOD COUNT 4.97 10^6/uL (4.70-6.10); RED CELL DISTRIBUTION WIDTH 11.8 % (12.0-15.0); WHITE BLOOD COUNT 3.4 x10^3/uL (4.8-10.8)
[2021-01-19 12:37] LABS: ALBUMIN 4.9 g/dL (3.2-5.5); ALBUMIN/GLOBULIN RATIO 1.6 (1.0-2.2); CALCIUM 9.6 mg/dL (8.5-10.3); POTASSIUM 4.2 mmol/L (3.5-5.0)
== END 2021-01-19 23:59 | disposition home or self-care (01) ==
LOC: LAB.N 08:00
PROVIDERS: ATTEND Physician Assistant Medical
DX: R68.89 Other general symptoms and signs (principal)
CPT/HCPCS: 36415; 80053; 83036; 84443; 85025

== ENCOUNTER 2021-01-21 09:26 | Emergency (ER) | payer MEDICAID ==
[2021-01-21 09:33] VITALS: BP 115/64
[2021-01-21] MEDS ORDERED: AMOXICILLIN 250 MG CAPSULE PO STA (10:17)
--- NOTE | 2021-01-21 10:19 | ED Physician Documentation ---
History of Present Illness - Stated complaint Stated Complaint: PAIN IN FEET, TOOTH INFECTION - Chief complaint Chief Complaint: General - History obtained from History obtained from: Patient - Additonal information Additional information: Patient comes emergency department chief complaint of bilateral foot pain and dental pain, both for the last few months. Patient states that he is not homeless and walks about a mile and a half a day. He states he has been noticing that sometimes his feet feel very cold and sometimes they feel hot like they are burning and throbbing. He denies any injury. He is not a diabetic. Patient states he checked his blood sugar at home, because his girlfriend is a diabetic and he used her equipment and also had blood work done at the walk-in clinic and that neither 1 indicated a high blood sugar. The patient has not been feeling ill in any other way. He states he has chronically decayed teeth and that the right maxillary ones are especially bad. He states when he chews, it hurts. He has seen a dentist in [place] before and states that he will call and make an appointment with them again. No other complaints at this time. Review of Systems Ten Systems: 10 systems reviewed and negative Constitutional: reports: Reviewed and negative Eyes: reports: Reviewed and negative Ears: reports: Reviewed and negative Nose: reports: Reviewed and negative Throat: reports: Dental pain / toothache Cardiac: reports: Reviewed and negative Respiratory: reports: Reviewed and negative GI: reports: Reviewed and negative : reports: Reviewed and negative Skin: reports: Reviewed and negative Musculoskeletal: reports: Extremity pain Neurologic: reports: Reviewed and negative Psychiatric: reports: Reviewed and negative Endocrine: reports: Reviewed and negative Immunocompromised: reports: Reviewed and negative PD PAST MEDICAL HISTORY - Past Medical History Cardiovascular: Hypertension Respiratory: None Neuro: None Endocrine/Autoimmune: None GI: None : None HEENT: Chronic vision loss Psych: Depression, Post traumatic stress disorder Musculoskeletal: None Derm: None - Past Surgical History Past Surgical History: Yes General: Hiatal hernia repair HEENT: Other - Present Medications Home Medications: Ambulatory Orders Medication Instructions Recorded Confirmed Amoxicillin 500 mg PO TID 7 Days #21 cap 01/21/21 Gabapentin [Neurontin] 300 mg PO TID #30 cap 01/21/21 - Allergies Allergies/Adverse Reactions: Allergies Allergy/AdvReac Type Severity Reaction Status Date / Time prednisone Allergy swelling Verified 01/21/21 09:30 - Social History Does the pt smoke?: Yes Smoking Status: Current every day smoker Does the pt drink ETOH?: Yes Does the pt have substance abuse?: No - Immunizations Immunizations are current?: No Immunizations: TDAP >10years/unknown - POLST Patient has POLST: No PD ED PE NORMAL - Vitals Vital signs reviewed: Yes - General General: Alert and oriented X 3, No acute distress, Well developed/nourished - HEENT HEENT: Atraumatic, PERRL, EOMI, Moist mucous membranes, Other (Patient is very poor dentition with severe decay of his right maxillary molars. No gingival or buccal edema. No drainage.) - Neck Neck: Supple, no meningeal sign - Cardiac Cardiac: Strong equal pulses (Dorsalis pedis and posterior tibial pulses are strong and equal bilaterally) - Respiratory Respiratory: No respiratory distress - Derm Derm: Normal color, Warm and dry, No rash - Extremities Extremities: No deformity, No tenderness to palpate, Normal ROM s pain, No edema, No calf tenderness / cord, Other (No evidence of trauma to feet. No swelling. 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 We have discussed peripheral neuropathy, though the patient does not have any identifiable reason to have peripheral neuropathy. We have discussed symptomatic management and the need for follow-up with his primary doctor. As far as his dental pain, I have started him on antibiotics. We discussed the usual indications for return. Departure - Departure Disposition: 01 Home, Self Care Clinical Impression: Pain, dental, Foot pain, bilateral Condition: Stable Instructions: ED Tooth Pain Prescriptions: Amoxicillin 500 mg PO TID 7 Days #21 cap Gabapentin [Neurontin] 300 mg PO TID #30 cap Comments: Please make an appointment with your dentist as soon as possible. Your prescriptions have been electronically transmitted to [facility] in [place]. Please pick them up as soon as possible.
== END 2021-01-21 10:26 | disposition home or self-care (01) ==
LOC: ED 09:26
DX: K08.89 Other specified disorders of teeth and supporting structures (principal); K02.9 Dental caries, unspecified; M79.671 Pain in right foot; M79.672 Pain in left foot; I10 Essential (primary) hypertension; F17.200 Nicotine dependence, unspecified, uncomplicated
CPT/HCPCS: 99282; 99283; A9270

== ENCOUNTER 2021-02-10 15:20 | Outpatient (CLI) | payer MEDICAID ==
--- NOTE | 2021-02-10 15:58 | XRAY Report ---
PROCEDURE: Chest 2 View X-Ray INDICATIONS: CHEST PX TECHNIQUE: 2 view(s) of the chest. COMPARISON: None. FINDINGS: Surgical changes and devices: None. Lungs and pleura: No pleural effusions or pneumothorax. Lungs are clear. Mediastinum: Mediastinal contours are normal. Heart size is normal. Bones and chest wall: No suspicious bony abnormalities. Soft tissues appear unremarkable. IMPRESSION: No acute cardiopulmonary abnormality. Reviewed by: Truong Garcia MD on 02/10/2021 3:57 PM [facility] Approved by: Truong Garcia MD on 02/10/2021 3:57 PM [facility] Station ID: [id number]
== END 2021-02-10 23:59 | disposition home or self-care (01) ==
LOC: DI.N 15:20
PROVIDERS: ATTEND Family Medicine
DX: R07.9 Chest pain, unspecified (principal)

== ENCOUNTER 2021-02-22 13:41 | Emergency (ER) | payer MEDICAID ==
[2021-02-22 14:04] VITALS: BP 128/69
--- NOTE | 2021-02-22 16:07 | ED Physician Documentation ---
History of Present Illness - Stated complaint Stated Complaint: LT LEG PX - Chief complaint Chief Complaint: Ext Problem - History obtained from History obtained from: Patient - History of Present Illness Timing: How many days ago (2) - Additonal information Additional information: 35-year-old male reports that he has developed some pain to the left lateral thi gh that is a buzzing sensation that happens periodically. He has not noted any change to the skin he does not have any tenderness to the area he does not have any pain with movement. He does state that he had previously been walking excessively and now feels that he is deconditioned. Spending most of his time sitting on the couch. He complains of some constipation as well and he is taking some fiber for that. Review of Systems Constitutional: denies: Fever Respiratory: denies: Cough GI: reports: Constipation. denies: Vomiting Skin: denies: Rash Musculoskeletal: reports: Extremity pain. denies: Neck pain, Back pain, Extremity swelling, Joint swelling, Pain with weight bearing Neurologic: denies: Generalized weakness, Focal weakness, Numbness PD PAST MEDICAL HISTORY - Past Medical History Cardiovascular: Hypertension Respiratory: None Neuro: None Endocrine/Autoimmune: None GI: None : None HEENT: Chronic vision loss Psych: Depression, Post traumatic stress disorder Musculoskeletal: None Derm: None - Past Surgical History Past Surgical History: Yes General: Hiatal hernia repair HEENT: Other - Present Medications Home Medications: Ambulatory Orders Medication Instructions Recorded Confirmed Amoxicillin 500 mg PO TID 7 Days #21 cap 01/21/21 Gabapentin [Neurontin] 300 mg PO TID #30 cap 01/21/21 - Allergies Allergies/Adverse Reactions: Allergies Allergy/AdvReac Type Severity Reaction Status Date / Time prednisone Allergy swelling Verified 02/22/21 14:04 - Social History Does the pt smoke?: Yes Smoking Status: Current every day smoker Does the pt drink ETOH?: Yes Does the pt have substance abuse?: No - Immunizations Immunizations are current?: No Immunizations: TDAP >10years/unknown - POLST Patient has POLST: No PD ED PE NORMAL - Vitals Vital signs reviewed: Yes (normal ) - General General: Alert and oriented X 3, No acute distress, Well developed/nourished - HEENT HEENT: Atraumatic, PERRL, EOMI - Respiratory Respiratory: No respiratory distress - Derm Derm: Normal color, Warm and dry, No rash - Extremities Extremities: No deformity, No tenderness to palpate, Normal ROM s pain, No edema, Other (exam of the skin overlying the area is unremarkable and similar to the other side .) - Neuro Neuro: Alert and oriented X 3, 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, No motor deficit, No sensory deficit, Normal speech Eye Opening: Spontaneous Motor: Obeys Commands Verbal: Oriented GCS Score: 15 - Psych Psych: Normal mood, Normal affect Results - Vitals Vitals: Vital Signs - 24 hr 02/22/21 14:02 Temperature 36.4 C L Heart Rate 91 Respiratory 16 Rate Blood Pressure 128/69 O2 Saturation 99 Oxygen O2 Source Room air PD MEDICAL DECISION MAKING - ED course Complexity details: considered differential, d/w patient ED course: 35-year-old male with a sensation of buzzing in the lateral aspect of his left thigh has no specific findings on physical examination nonspecific complaints. Uncertain why this patient is here in the emergency department today I am concerned about malingering. He does endorse deconditioning. Departure - Departure Disposition: 01 Home, Self Care Clinical Impression: Muscular deconditioning Condition: Stable Instructions: Exercises Agility Cross Steps Follow-Up: [facility] [Provider Group]
== END 2021-02-22 16:25 | disposition home or self-care (01) ==
LOC: ED 13:41
DX: M62.89 Other specified disorders of muscle (principal); M79.652 Pain in left thigh; I10 Essential (primary) hypertension; F17.200 Nicotine dependence, unspecified, uncomplicated
CPT/HCPCS: 99281

== ENCOUNTER 2021-03-14 08:00 | Outpatient (CLI) | payer MEDICAID | END 2021-03-14 23:59 | LOC: LAB.N 08:00 | PROVIDERS: ATTEND Physician Assistant | DX: J02.9 Acute pharyngitis, unspecified (principal); Z20.822 Contact with and (suspected) exposure to COVID-19 ==

== ENCOUNTER 2021-03-24 21:00 | Emergency (ER) | payer MEDICAID ==
[2021-03-24 22:53] LABS: BILIRUBIN,URINE NEGATIVE (NEGATIVE); GLUCOSE, URINE (UA) NEGATIVE (NEGATIVE); KETONES,URINE (UA) NEGATIVE (NEGATIVE); LEUKOCYTE ESTERASE, URINE NEGATIVE (NEGATIVE); NITRITE,URINE NEGATIVE (NEGATIVE); OCCULT BLOOD,URINE NEGATIVE (NEGATIVE); PH,URINE 6.5 PH (5.0-7.5); PROTEIN,URINE NEGATIVE (NEGATIVE); UROBILINOGEN,URINE 0.2 (NORMAL) E.U./dL (NORMAL)
[2021-03-24 23:09] LABS: CLARITY,URINE CLEAR (CLEAR)
--- NOTE | 2021-03-24 23:54 | ED Physician Documentation ---
History of Present Illness - Stated complaint Stated Complaint: ABD PX, FEET ISSUES, SORE THROAT - Chief complaint Chief Complaint: General - History obtained from History obtained from: Patient - Additonal information Additional information: Pt comes to the ED for CC of a pain in his L upper abdomen for the past few days. He thinks he may have pulled a muscle. Pt denies N/V or F/C. No change in bowel habits. No dysuria or hematuria. He states he has not felt sick, though he has also had a sore spot down lower in his throat. No rhinorrhea or congestion. No cough. The pt is not a diabetic (uses his girlfriend's equipment to check his blood sugar at home), but continues to complain of a chronic burning and tingling feeling in the soles of his feet. I saw him in the ED some months ago for the same complaint. Pt has not followed up with his PCP for this since. He states he is not on his feet for long periods each day and is not homeless. No other complaints at this time. Review of Systems Ten Systems: 10 systems reviewed and negative Constitutional: reports: Reviewed and negative Eyes: reports: Reviewed and negative Ears: reports: Reviewed and negative Nose: reports: Reviewed and negative Throat: reports: Sore throat Cardiac: reports: Reviewed and negative Respiratory: reports: Reviewed and negative GI: reports: Abdominal Pain : reports: Reviewed and negative Skin: reports: Reviewed and negative Musculoskeletal: reports: Extremity pain Neurologic: reports: Reviewed and negative Psychiatric: reports: Reviewed and negative Endocrine: reports: Reviewed and negative Immunocompromised: reports: Reviewed and negative PD PAST MEDICAL HISTORY - Past Medical History Past Medical History: Yes Cardiovascular: Hypertension Respiratory: None Neuro: None Endocrine/Autoimmune: None GI: None : None HEENT: Chronic vision loss Psych: Depression, Post traumatic stress disorder Musculoskeletal: None Derm: None - Past Surgical History Past Surgical History: Yes General: Hiatal hernia repair HEENT: Other - Present Medications Home Medications: Ambulatory Orders Medication Instructions Recorded Confirmed Amoxicillin 500 mg PO TID 7 Days #21 cap 01/21/21 Gabapentin [Neurontin] 300 mg PO TID #30 cap 01/21/21 - Allergies Allergies/Adverse Reactions: Allergies Allergy/AdvReac Type Severity Reaction Status Date / Time prednisone Allergy swelling Verified 03/24/21 21:10 - Social History Does the pt smoke?: Yes Smoking Status: Current every day smoker Does the pt drink ETOH?: Yes Does the pt have substance abuse?: No - Immunizations Immunizations are current?: No Immunizations: TDAP >10years/unknown - POLST Patient has POLST: No PD ED PE NORMAL - Vitals Vital signs reviewed: Yes - General General: Alert and oriented X 3, No acute distress, Well developed/nourished - HEENT HEENT: Atraumatic, PERRL, EOMI, Moist mucous membranes, Pharynx benign - Neck Neck: Supple, no meningeal sign, No adenopathy, Other (No mass) - Cardiac Cardiac: RRR, No murmur, Strong equal pulses - Respiratory Respiratory: No respiratory distress, Clear bilaterally - Abdomen Abdomen: Soft, Non distended, Other (Mild, point-tenderness in medial LUQ) - Back Back: No CVA TTP - Derm Derm: Normal color, Warm and dry, No rash - Extremities Extremities: No deformity, No edema, No calf tenderness / cord, Other (Foot exam is normal. 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 YELLOW Urine Clarity CLEAR Urine pH 6.5 Ur Specific [place] 1.020 Urine Protein NEGATIVE Urine Glucose (UA) NEGATIVE Urine Ketones NEGATIVE Urine Occult Blood NEGATIVE Urine Nitrite NEGATIVE Urine Bilirubin NEGATIVE Urine Urobilinogen 0.2 (NORMAL) Ur Leukocyte Esterase NEGATIVE Ur Microscopic Review NOT INDICATED Urine Culture Comments NOT INDICATED PD MEDICAL DECISION MAKING - ED course Complexity details: considered differential, d/w patient ED course: The pt had very focused tenderness which did not seem to be deep, and abdomen was benign. His throat exam was also benign. I discussed with the pt that I do not find evidence of an emergent condition, or even one that warrants further work-up, at this point. As far as his feet, the symptoms sound consistent with a developing neuropathy especially given the chronicity; however, given the lack of being on his feet for long periods and the absence of diabetes, it is not clear why he would have a neuropathy. I have discussed with him that it is possible he could benefit from orthotics, but this would be the call of a fire lieutenant, and I have recommended that the pt follow up with podiatry. We have discussed the usual indications for return. Departure - Departure Disposition: 01 Home, Self Care Clinical Impression: Abdominal wall pain, Throat pain in adult, Foot pain, bilateral Condition: Stable Instructions: ED Strain Abdominal Muscle Follow-Up: Susana Alexander DPM [Provider Admit Priv/Credential] - Comments: Your throat exam is normal. You have some mild discoloration on your tongue which is most likely due to the smoking. You do not have any enlarged lymph nodes or other "lumps" in your neck to raise concern for cancer or another serious condition. As far as the pain you are having in your left upper abdomen, it seems to be more centered in your musculature than to be coming from 1 your organs. Most likely, this will blow over on its own, given time. Far as your feet, this is a chronic condition that has been going on for quite some time, and most likely, the best plan would be for you to follow-up with the fire lieutenant. Sometimes, a pair of orthotics can help with ongoing foot discomfort, and a fire lieutenant would be best suited to recommend something like this. You may take ibuprofen and Tylenol to help with your discomfort. Please also be sure to drink plenty of water and eat a high-fiber diet to help your constipation. Please call and make an appointment to follow up with your primary care physician. Discharge Date/Time: 03/25/21 00:34
[2021-03-25 00:34] VITALS: BP 123/73
== END 2021-03-25 00:34 | disposition home or self-care (01) ==
LOC: ED 21:00
DX: M79.672 Pain in left foot (principal); M79.671 Pain in right foot; R07.0 Pain in throat; R10.12 Left upper quadrant pain; F17.200 Nicotine dependence, unspecified, uncomplicated; I10 Essential (primary) hypertension
CPT/HCPCS: 81001; 81003; 87086; 99282; 99283

== ENCOUNTER → 2021-03-26 | Outpatient (CLI) | payer MEDICAID ==
--- NOTE | 2021-03-26 16:41 | XRAY Report ---
PROCEDURE: Abdomen 2 View X-Ray INDICATIONS: ABDOMINAL PAIN, LUQ TECHNIQUE: 2 views of the abdomen were acquired. COMPARISON: None. FINDINGS: ABDOMEN: Nonobstructive bowel gas pattern. No appreciable free intraperitoneal gas. BONES/SOFT TISSUES: No acute abnormality. IMPRESSION: 1.No evidence for acute findings. Reviewed by: John Dobbs MD on 03/26/2021 4:39 PM PST Approved by: John Dobbs MD on 03/26/2021 4:39 PM [facility] Station ID: [id number]
== END ==
LOC: DI.N 13:51
PROVIDERS: ATTEND Family Medicine
DX: R10.12 Left upper quadrant pain (principal)

== ENCOUNTER 2021-05-11 08:42 | Emergency (ER) | payer MEDICAID ==
[2021-05-11 09:18] LABS: RAPID STREP SCREEN Negative (Negative)
--- OUTSIDE RECORDS SUMMARY | 2021-05-11 09:29 | EXTERNAL MEDICAL SUMMARY RPT | Continuity of Care Document ---
:1985 Author Organization [facility] Address [address] [place] [address] Phone Care Team Providers Name Role Phone Parra Unavailable Unavailable Allergies No information. Encounters No information. Medications No information. Problems Procedures date description facility [id number] [facility] Results No information. Vital Signs date measurement value source 20210427 weight_standard 179.99 lb 20210427 weight_metric 81.64 kg 20210427 temperature_standard 97.5 F [id number] temperature_metric 36.39 C 20210427 heart_rate 96 /min [id number] BP_systolic 128 mm[Hg] 20210427 BP_diastolic 89 mm[Hg]
--- NOTE | 2021-05-11 09:38 | ED Physician Documentation ---
PD HPI HEENT - Stated complaint Stated Complaint: SORE THROAT - Chief complaint Chief Complaint: Heent - History obtained from History obtained from: Patient - History of Present Illness Timing - onset: How many months ago (has had sore throat to some degree for couple of months, worse at times, and has had white tongue at times too. Seen walk in couple of times with neg strep testing and covid testing. Rx with Augmentin anyway without change. Did get tinea cruris with that though and single dose diflucan for it.) Timing - duration: Months Timing - details: Gradual onset, Still present, Waxing and waning Location: Throat. No: Sinuses, Nose Associated symptoms: Congestion. No: Fever, Rhinorrhea, Headache, Cough Similar symptoms before: No diagnosis Recently seen: Clinic Review of Systems Constitutional: reports: Fatigue. denies: Fever, Chills Nose: reports: Congestion. denies: Rhinorrhea / runny nose, Epistaxis Throat: reports: Sore throat Respiratory: denies: Cough GI: denies: Abdominal Pain, Nausea, Vomiting Skin: denies: Rash, Lesions Endocrine: denies: Weight loss, Weight gain PD PAST MEDICAL HISTORY - Past Medical History Past Medical History: Yes Cardiovascular: None Respiratory: None Neuro: None Endocrine/Autoimmune: None GI: None : None HEENT: Chronic vision loss Psych: Depression, Post traumatic stress disorder Musculoskeletal: None Derm: None - Past Surgical History Past Surgical History: Yes General: Hiatal hernia repair HEENT: Other - Present Medications Home Medications: Ambulatory Orders Medication Instructions Recorded Confirmed Acetaminophen [Acetaminophen Extra 500 mg PO QID PRN #50 tablet 05/11/21 Strength] Esomeprazole Magnesium 20 mg PO DAILY 05/11/21 05/11/21 Fluconazole [Diflucan] 150 mg PO Q3D 6 Days #2 tablet 05/11/21 Nystatin [Mycostatin] 10 ml PO QID 3 Days #120 ml 05/11/21 - Allergies Allergies/Adverse Reactions: Allergies Allergy/AdvReac Type Severity Reaction Status Date / Time prednisone Allergy swelling Verified 05/11/21 08:54 - Social History Does the pt smoke?: Yes Smoking Status: Current every day smoker Does the pt drink ETOH?: No Does the pt have substance abuse?: No - Immunizations Immunizations are current?: No Immunizations: TDAP >10years/unknown - POLST Patient has POLST: No PD ED PE NORMAL - Vitals Vital signs reviewed: Yes - General General: Alert and oriented X 3, Well developed/nourished - HEENT HEENT: Ears normal, Moist mucous membranes. No: Pharynx benign (redness bilaterally in pharynx and posterior soft pallate without exudate. No plaques seen. ) - Neck Neck: Supple, no meningeal sign, No adenopathy - Cardiac Cardiac: RRR, No murmur - Respiratory Respiratory: Clear bilaterally - Abdomen Abdomen: Soft, Non tender - Derm Derm: Normal color, Warm and dry - Neuro Neuro: Alert and oriented X 3, No motor deficit, Normal speech Results - Vitals Vitals: Oxygen O2 Source Room air - Labs Labs: Microbiology 05/11/21 09:00 Group A Strep Throat Culture - Final Throat MIXED OROPHARYNGEAL RENATO PRESENT. NO BETA STREP PRESENT IN CULTURE. Laboratory Tests 05/11/21 05/11/21 05/11/21 09:00 10:12 10:12 WBC 2.9 L RBC 4.83 Hgb 15.4 Hct 44.0 MCV 91.1 MCH 31.9 H MCHC 35.0 RDW 11.8 L Plt Count 223 MPV 9.5 Neut # (Auto) 1.3 L Lymph # (Auto) 1.1 L [place] # (Auto) 0.3 Eos # (Auto) 0.1 Baso # (Auto) 0.0 Absolute Nucleated RBC 0.00 Nucleated RBC % 0.0 Sodium 138 Potassium 4.2 Chloride 100 L Carbon Dioxide 29 Anion Gap 9.0 BUN 12 Creatinine 0.9 Estimated GFR (MDRD) 95 Glucose 102 H Calcium 9.3 Total Bilirubin 0.7 AST 19 ALT 21 Alkaline Phosphatase 67 C-Reactive Protein < 1.0 Total Protein 7.3 Albumin 4.5 Globulin 2.8 Albumin/Globulin Ratio 1.6 Lipase 24 TSH Group A Strep Rapid Negative 05/11/21 10:12 WBC RBC Hgb Hct MCV MCH MCHC RDW Plt Count MPV Neut # (Auto) Lymph # (Auto) [place] # (Auto) Eos # (Auto) Baso # (Auto) Absolute Nucleated RBC Nucleated RBC % Sodium Potassium Chloride Carbon Dioxide Anion Gap BUN Creatinine Estimated GFR (MDRD) Glucose Calcium Total Bilirubin AST ALT Alkaline Phosphatase C-Reactive Protein Total Protein Albumin Globulin Albumin/Globulin Ratio Lipase TSH 1.30 Group A Strep Rapid PD MEDICAL DECISION MAKING - ED course Complexity details: considered differential (Has had negative strep tests and is prolonged for typical viral. He states has had white plaque on tongue at times. He is concerned about other issues like leukemia, diabetes, etc (the power of [employer]). These are reasonable to test for. Consider fungal infection instead as well. ), d/w patient Departure - Departure Disposition: 01 Home, Self Care Clinical Impression: Pharyngitis Qualifiers: Pharyngitis/tonsillitis etiology: unspecified etiology Qualified Code(s): J02.9 - Acute pharyngitis, unspecified Condition: Stable Record reviewed to determine appropriate education?: Yes Prescriptions: Acetaminophen [Acetaminophen Extra Strength] 500 mg PO QID PRN #50 tablet PRN Reason: Pain Fluconazole [Diflucan] 150 mg PO Q3D 6 Days #2 tablet Nystatin [Mycostatin] 10 ml PO QID 3 Days #120 ml Comments: Your basic blood count is essentially normal. There is a slightly low white cell count which can be seen in the setting of viral illness at times. It is not too high and your hemoglobin (red cell count) portion is normal as are and inflammation marker called the CRP. This would exclude a significant autoimmune/inflammatory process or leukemia type processes. Your thyroid test has not resulted yet we will call you if it is abnormal. Your electrolytes are normal as is kidney function. Your rapid strep test is again normal here. The culture will result in a couple of days. I would consider the idea of a fungal infection causing your symptoms and treat it more prolongedly with antifungal medicines. I would have you try Diflucan oral antifungal every 3 days for 2 more doses (so 3 days from now and 6 days from now). Also nystatin oral antifungal 4 times daily for the next 3 days. Continue with the previously prescribed "magic mouthwash". Use Tylenol 4 times daily for the next several days to week to help with the pain. Recheck if still not improved over the next several days to week. I transmitted your prescriptions to [facility] pharmacy in [place]. Discharge Date/Time: 05/11/21 11:00
[2021-05-11] MEDS ORDERED: LIDOCAINE VISCOUS 2% 15 ML UDC MM STA (10:02)
[2021-05-11] MEDS ORDERED: FLUCONAZOLE 100 MG TABLET PO STA (10:02)
[2021-05-11] MEDS ORDERED: diphenhydrAMINE ELIXIR 25 MG/10 ML UDC PO STA (10:02)
[2021-05-11 10:18] LABS: BASOPHILS % (AUTO) 1.4 %; EOSINOPHILS # (AUTO) 0.1 10^3/uL (0.0-0.7); EOSINOPHILS % (AUTO) 2.8 %; HGB - HEMOGLOBIN 15.4 g/dL (14.0-18.0); LYMPHOCYTES # (AUTO) 1.1 10^3/uL (1.5-3.5); LYMPHOCYTES % (AUTO) 38.5 %; MEAN CORPUSCULAR HEMOGLOBIN 31.9 pg (27.0-31.0); MEAN CORPUSCULAR VOLUME 91.1 fL (80.0-94.0); MEAN PLATELET VOLUME 9.5 fL (7.4-11.4); MONOCYTES # (AUTO) 0.3 10^3/uL (0.0-1.0); MONOCYTES % (AUTO) 11.5 %; NEUTROPHILS # (AUTO) 1.3 10^3/uL (1.5-6.6); NEUTROPHILS % (AUTO) 45.8 %; PLT - PLATELET COUNT 223 10^3/uL (130-450); RED BLOOD COUNT 4.83 10^6/uL (4.70-6.10); RED CELL DISTRIBUTION WIDTH 11.8 % (12.0-15.0); WHITE BLOOD COUNT 2.9 x10^3/uL (4.8-10.8)
[2021-05-11 10:45] LABS: ALBUMIN 4.5 g/dL (3.2-5.5); ALBUMIN/GLOBULIN RATIO 1.6 (1.0-2.2); ALKALINE PHOSPHATASE 67 IU/L (42-121); ALT ALANINE AMINOTRANSFERASE 21 IU/L (10-60); AST ASPARTATE AMINOTRANSFERASE 19 IU/L (10-42); BILIRUBIN,TOTAL 0.7 mg/dL (0.2-1.0); BUN - BLOOD UREA NITROGEN 12 mg/dL (6-20); CALCIUM 9.3 mg/dL (8.5-10.3); CARBON DIOXIDE - CO2 29 mmol/L (21-32); CHLORIDE 100 mmol/L (101-111); CREATININE 0.9 mg/dL (0.6-1.2); CRP - C-REACTIVE PROTEIN < 1.0 mg/dL (0-1.0); GFR - MDRD 95 (>89); GLUCOSE 102 mg/dL (70-100); LIPASE 24 U/L (22-51); POTASSIUM 4.2 mmol/L (3.5-5.0); SODIUM 138 mmol/L (135-145); TOTAL PROTEIN 7.3 g/dL (6.7-8.2)
[2021-05-11 11:00] VITALS: BP 124/66
== END 2021-05-11 11:00 | disposition home or self-care (01) ==
LOC: ED 08:42
DX: J02.9 Acute pharyngitis, unspecified (principal); F17.200 Nicotine dependence, unspecified, uncomplicated
CPT/HCPCS: 36415; 80053; 83690; 84443; 85025; 86140; 87070; 87430; 99282; 99283; A9270

== ENCOUNTER 2021-06-03 11:36 | Outpatient (CLI) | payer MEDICAID ==
[2021-06-03 18:29] LABS: BASOPHILS # (AUTO) 0.1 10^3/uL (0.0-0.1); BASOPHILS % (AUTO) 1.5 %; EOSINOPHILS # (AUTO) 0.1 10^3/uL (0.0-0.7); EOSINOPHILS % (AUTO) 1.8 %; HCT - HEMATOCRIT 42.2 % (42.0-52.0); HGB - HEMOGLOBIN 14.7 g/dL (14.0-18.0); LYMPHOCYTES # (AUTO) 0.9 10^3/uL (1.5-3.5); LYMPHOCYTES % (AUTO) 25.6 %; MEAN CORPUSCULAR HEMOGLOBIN 32.1 pg (27.0-31.0); MEAN CORPUSCULAR HGB CONC 34.8 g/dL (32.0-36.0); MEAN CORPUSCULAR VOLUME 92.1 fL (80.0-94.0); MEAN PLATELET VOLUME 10.2 fL (7.4-11.4); MONOCYTES # (AUTO) 0.4 10^3/uL (0.0-1.0); MONOCYTES % (AUTO) 12.3 %; NEUTROPHILS # (AUTO) 1.9 10^3/uL (1.5-6.6); NEUTROPHILS % (AUTO) 58.5 %; PLT - PLATELET COUNT 235 10^3/uL (130-450); RED BLOOD COUNT 4.58 10^6/uL (4.70-6.10); RED CELL DISTRIBUTION WIDTH 11.9 % (12.0-15.0); WHITE BLOOD COUNT 3.3 x10^3/uL (4.8-10.8)
== END 2021-06-03 11:37 | disposition home or self-care (01) ==
LOC: LAB.N 11:36
PROVIDERS: ATTEND Family Medicine
DX: K21.9 Gastro-esophageal reflux disease without esophagitis (principal); D72.819 Decreased white blood cell count, unspecified; R63.4 Abnormal weight loss; Z13.89 Encounter for screening for other disorder; R63.5 Abnormal weight gain
CPT/HCPCS: 36415; 84134; 85025

== ENCOUNTER 2021-09-10 20:22 | Emergency (ER) | payer MEDICAID ==
--- NOTE | 2021-09-10 20:39 | ED Physician Documentation ---
PD HPI CHEST PAIN - Stated complaint Stated Complaint: CHEST PX - Chief complaint Chief Complaint: Cardiac - History obtained from History obtained from: Patient - History of Present Illness Timing - onset: How many days ago (2-3) Timing - onset during: Rest Timing - details: Abrupt onset Pain level now: 7 Quality: Pain Location: Right chest Radiation: Other (does not radiate) Worsened by: Movement (movement of RUE) Similar symptoms before: Has not had sx before Recently seen: Not recently seen - Additional information Additional information: c/o right upper anterior chest pain x 2-3 days, onset while "hanging out" (per patient; no specific inciting event he recalls). Pain is partially exacerbated with movement of right arm at shoulder. Denies h/o similar symptoms. Review of Systems Constitutional: denies: Fever, Chills, Sweats Cardiac: reports: Chest pain / pressure. denies: Palpitations, Pedal edema, Calf pain Respiratory: reports: Reviewed and negative GI: reports: Reviewed and negative PD PAST MEDICAL HISTORY - Past Medical History Cardiovascular: None Respiratory: None Neuro: None Endocrine/Autoimmune: None GI: None : None HEENT: Chronic vision loss Psych: Depression, Post traumatic stress disorder Musculoskeletal: None Derm: None - Past Surgical History Past Surgical History: Yes General: Hiatal hernia repair HEENT: Other - Present Medications Home Medications: Ambulatory Orders Medication Instructions Recorded Confirmed Acetaminophen [Acetaminophen Extra 500 mg PO QID PRN #50 tablet 05/11/21 Strength] Esomeprazole Magnesium 20 mg PO DAILY 05/11/21 05/11/21 Fluconazole [Diflucan] 150 mg PO Q3D 6 Days #2 tablet 05/11/21 Nystatin [Mycostatin] 10 ml PO QID 3 Days #120 ml 05/11/21 - Allergies Allergies/Adverse Reactions: Allergies Allergy/AdvReac Type Severity Reaction Status Date / Time prednisone Allergy swelling Verified 09/10/21 20:38 - Social History Does the pt smoke?: Yes Smoking Status: Current every day smoker Does the pt drink ETOH?: No Does the pt have substance abuse?: No - Immunizations Immunizations are current?: No Immunizations: TDAP >10years/unknown - POLST Patient has POLST: No PD ED PE NORMAL - Vitals Vital signs reviewed: Yes - General General: Alert and oriented X 3, No acute distress, Well developed/nourished - HEENT HEENT: Moist mucous membranes, Pharynx benign - Neck Neck: Supple, no meningeal sign - Cardiac Cardiac: RRR, No murmur, No gallop, No rub - Respiratory Respiratory: No respiratory distress, Clear bilaterally - Abdomen Abdomen: Soft, Non tender - Derm Derm: Normal color, Warm and dry, No rash - Extremities Extremities: No edema Results - Vitals Vitals: Vital Signs - 24 hr 09/10/21 09/10/21 09/10/21 20:32 20:37 22:00 Temperature 36.2 C L 36.5 C 36.8 C Heart Rate 110 H 110 H 90 Respiratory 16 16 20 Rate Blood Pressure 140/91 H 140/91 H 121/83 H O2 Saturation 99 99 99 Oxygen O2 Source Room air - EKG (time done) No standard instances Rate: Rate (enter#) (94) Rhythm: NSR [place]: Normal Intervals: Normal [place] QRS: Normal Ischemia: Normal ST segments, Q waves (small Q II, III, aVF (noted on previous EKG as well)) - Labs Labs: Laboratory Tests 09/10/21 09/10/21 09/10/21 21:05 21:05 21:05 WBC 6.0 RBC 4.66 L Hgb 15.4 Hct 42.4 MCV 91.0 MCH 33.0 H MCHC 36.3 H RDW 11.6 L Plt Count 230 MPV 9.5 Neut # (Auto) 4.5 Lymph # (Auto) 1.1 L [place] # (Auto) 0.3 Eos # (Auto) 0.0 Baso # (Auto) 0.0 Absolute Nucleated RBC 0.00 Nucleated RBC % 0.0 Sodium 140 Potassium 3.7 Chloride 101 Carbon Dioxide 31 Anion Gap 8.0 BUN 11 Creatinine 0.9 Estimated GFR (MDRD) 94 Glucose 141 H Calcium 9.5 Total Bilirubin 0.9 AST 21 ALT 19 Alkaline Phosphatase 68 Troponin I High Sens < 2.3 L Total Protein 7.3 Albumin 4.4 Globulin 2.9 Albumin/Globulin Ratio 1.5 Lipase 23 TSH 09/10/21 21:05 WBC RBC Hgb Hct MCV MCH MCHC RDW Plt Count MPV Neut # (Auto) Lymph # (Auto) [place] # (Auto) Eos # (Auto) Baso # (Auto) Absolute Nucleated RBC Nucleated RBC % Sodium Potassium Chloride Carbon Dioxide Anion Gap BUN Creatinine Estimated GFR (MDRD) Glucose Calcium Total Bilirubin AST ALT Alkaline Phosphatase Troponin I High Sens Total Protein Albumin Globulin Albumin/Globulin Ratio Lipase TSH 0.93 - Rads (name of study) chest xray Radiology: Prelim report reviewed, See rad report PD MEDICAL DECISION MAKING - ED course Complexity details: reviewed old records, reviewed results, re-evaluated patient, considered differential, d/w patient ED course: No concerning/diagnostic findings on chest xray, EKG, blood tests (including hs- cTn, TSH). Etiology of symptoms is not apparent at this time. Results d/w patient and advised to return if worse, follow up with primary care provider next available appointment Departure - Departure Disposition: Home, Self Care Clinical Impression: Chest pain Qualifiers: Chest pain type: unspecified Qualified Code(s): R07.9 - Chest pain, unspecified Condition: Good Instructions: ED Chest Pain Atypical Unkn Cause Follow-Up: Teetee Hernandez ARNP [Primary Care Provider] - Comments: The results of tonight's tests are normal. There are no concerning findings on your EKG or chest xray, and the blood tests are unremarkable including a cardiac enzyme test and a thyroid test. The cause of your symptoms is not apparent at this time. Follow up with your primary care provider for reevaluation. Discharge Date/Time: 09/10/21 22:10
[2021-09-10 21:12] LABS: BASOPHILS % (AUTO) 0.7 %; EOSINOPHILS % (AUTO) 0.2 %; HCT - HEMATOCRIT 42.4 % (42.0-52.0); HGB - HEMOGLOBIN 15.4 g/dL (14.0-18.0); LYMPHOCYTES # (AUTO) 1.1 10^3/uL (1.5-3.5); LYMPHOCYTES % (AUTO) 17.7 %; MEAN CORPUSCULAR HGB CONC 36.3 g/dL (32.0-36.0); MEAN PLATELET VOLUME 9.5 fL (7.4-11.4); MONOCYTES # (AUTO) 0.3 10^3/uL (0.0-1.0); MONOCYTES % (AUTO) 5.7 %; NEUTROPHILS # (AUTO) 4.5 10^3/uL (1.5-6.6); NEUTROPHILS % (AUTO) 75.5 %; PLT - PLATELET COUNT 230 10^3/uL (130-450); RED BLOOD COUNT 4.66 10^6/uL (4.70-6.10); RED CELL DISTRIBUTION WIDTH 11.6 % (12.0-15.0)
[2021-09-10 21:31] LABS: ALBUMIN 4.4 g/dL (3.2-5.5); ALBUMIN/GLOBULIN RATIO 1.5 (1.0-2.2); BILIRUBIN,TOTAL 0.9 mg/dL (0.2-1.0); CALCIUM 9.5 mg/dL (8.5-10.3); CREATININE 0.9 mg/dL (0.6-1.2); POTASSIUM 3.7 mmol/L (3.5-5.0); TOTAL PROTEIN 7.3 g/dL (6.7-8.2)
--- NOTE | 2021-09-10 22:01 | XRAY Report ---
PROCEDURE: Chest 2 View X-Ray INDICATIONS: chest pain TECHNIQUE: 2 views of the chest. COMPARISON: 02/10/21. FINDINGS: Surgical changes and devices: None. Lungs and pleura: No pleural effusions or pneumothorax. Lungs are clear. Mediastinum: Mediastinal contours are normal. Heart size is normal. Bones and chest wall: No suspicious bony abnormalities. A cutaneous BB marker is demonstrated in the right anterior chest wall superiorly adjacent to the right clavicular head. Soft tissues appear unre markable. IMPRESSION: 1. No acute cardiopulmonary disease. Reviewed by: Young Stuart MD on 09/10/2021 10:00 PM PDT Approved by: Young Stuart MD on 09/10/2021 10:00 PM PDT Station ID: [id number]
[2021-09-10 22:10] VITALS: BP 121/83
== END 2021-09-10 22:10 | disposition home or self-care (01) ==
LOC: ED 20:22
DX: R07.9 Chest pain, unspecified (principal); F17.200 Nicotine dependence, unspecified, uncomplicated
CPT/HCPCS: 36415; 80053; 83690; 84443; 84484; 85025; 93005; 99284

== ENCOUNTER 2021-11-09 16:53 | Emergency (ER) | payer MEDICAID ==
[2021-11-09 17:06] VITALS: BP 135/81
--- NOTE | 2021-11-09 17:58 | ED Physician Documentation ---
PD HPI HEADACHE - Stated complaint Stated Complaint: HIGH BP,HEADACHE - Chief complaint Chief Complaint: Neuro - History obtained from History obtained from: Patient - Additional information Additional information: Patient is a 36-year-old male presenting for evaluation of a throbbing right- sided headache that has been present since last night. He reports going to [employer] and checking his blood pressure and noted that it was elevated. He is unsure of the exact numbers. He has a history of a TBI in the early and reports issues with his memory as well as vision in his right eye. He denies other new symptoms. He has not taken anything for the headache and does not currently want any medications for it. He denies chest pain, difficulty breathing, recent injury or fall, abdominal pain, vomiting or diarrhea.Nothing makes the pain better or worse. Review of Systems Constitutional: denies: Fever Cardiac: denies: Chest pain / pressure Respiratory: denies: Dyspnea GI: denies: Abdominal Pain, Vomiting : denies: Dysuria Musculoskeletal: denies: Back pain Neurologic: reports: Headache PD PAST MEDICAL HISTORY - Past Medical History Cardiovascular: None Respiratory: None Neuro: None Endocrine/Autoimmune: None GI: None : None HEENT: Chronic vision loss Psych: Depression, Post traumatic stress disorder Musculoskeletal: None Derm: None - Past Surgical History Past Surgical History: Yes General: Hiatal hernia repair HEENT: Other - Present Medications Home Medications: Ambulatory Orders Medication Instructions Recorded Confirmed Acetaminophen [Acetaminophen Extra 500 mg PO QID PRN #50 tablet 05/11/21 Strength] Esomeprazole Magnesium 20 mg PO DAILY 05/11/21 05/11/21 Fluconazole [Diflucan] 150 mg PO Q3D 6 Days #2 tablet 05/11/21 Nystatin [Mycostatin] 10 ml PO QID 3 Days #120 ml 05/11/21 - Allergies Allergies/Adverse Reactions: Allergies Allergy/AdvReac Type Severity Reaction Status Date / Time prednisone Allergy swelling Verified 11/09/21 17:07 - Social History Does the pt smoke?: Yes Smoking Status: Current every day smoker Does the pt drink ETOH?: No Does the pt have substance abuse?: No - Immunizations Immunizations are current?: No Immunizations: TDAP >10years/unknown - POLST Patient has POLST: No PD ED PE NORMAL - General General: Alert and oriented X 3, No acute distress, Well developed/nourished - HEENT HEENT: Atraumatic, Other (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, 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; Left pupil is round, reactive to light, EOMI) - Neck Neck: Supple, no meningeal sign, No bony TTP - Cardiac Cardiac: RRR, No murmur, Strong equal pulses - Respiratory Respiratory: No respiratory distress, Clear bilaterally - Abdomen Abdomen: Normal bowel sounds, Soft, Non tender, Non distended - Back Back: No spinal TTP - Derm Derm: Warm and dry - Extremities Extremities: No edema - Neuro Neuro: Alert and oriented X 3, 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 Initial blood pressure appears stable. Patient's neuro exam is normal. My exam is very different than triage nurse and was witnessed by room nurse. Patient is able to follow commands and answers questions appropriately.Discussed options for imaging and patient is agreeable for head CT although I have Very low suspicion for intracranial process As patient does appear to be at his baseline with no focal deficits.Patient declined need for medications.While awaiting imaging, patient wanted to leave as he was not able to reach his girlfriend waiting in the parking lot. He is alert and oriented x3 including being aware of the year. He does not appear intoxicated and understands that he is able to return at any time if he changes his mind for evaluation. Departure - Departure Disposition: ED Elope Clinical Impression: Headache Qualifiers: Headache type: unspecified Headache chronicity pattern: acute headache Intractability: not intractable Qualified Code(s): R51.9 - Headache, unspecified Condition: Stable Discharge Date/Time: 11/09/21 17:45
== END 2021-11-09 17:45 | disposition left against medical advice (07) ==
LOC: ED 16:53
DX: R51.9 Headache, unspecified (principal); F17.200 Nicotine dependence, unspecified, uncomplicated
CPT/HCPCS: 99283; 99284

== ENCOUNTER 2021-11-09 18:45 | Emergency (ER) | payer MEDICAID ==
[2021-11-09] MEDS ORDERED: ACETAMINOPHEN 325 MG TABLET PO STA (19:16)
--- NOTE | 2021-11-09 19:18 | ED Physician Documentation ---
PD HPI HEADACHE - Stated complaint Stated Complaint: HEAD PX - Chief complaint Chief Complaint: Heent - History obtained from History obtained from: Patient, Other (Patient's girlfriend) - Additional information Additional information: Patient is a 36-year-old male with a history of traumatic brain injury presenting for evaluation of a throbbing right-sided headache that has been present since last night. He was out with his girlfriend as she was making door [employer] deliveries when the headache started. They went to [facility] to check his blood pressure and noted that it was elevated at 120/90. Patient was evaluated earlier in the emergency department and at that time had consented to a head CT but left prior to obtaining the images as he was unable to contact his girlfriend to let her know what was going on and left to go talk to her. He has since taken 1 pill of ibuprofen and reports improvement in his head pain. He denies light sensitivity, nausea, vomiting. Girlfriend states that he has been acting at his baseline since Headache started. He denies any recent injuries or falls. He does not take a blood thinner. Review of Systems Constitutional: denies: Fever Cardiac: denies: Chest pain / pressure Respiratory: denies: Dyspnea GI: denies: Abdominal Pain, Vomiting : denies: Dysuria Musculoskeletal: denies: Back pain Neurologic: reports: Headache PD PAST MEDICAL HISTORY - Past Medical History Past Medical History: Yes Cardiovascular: None Respiratory: None Neuro: None Endocrine/Autoimmune: None GI: None : None HEENT: Chronic vision loss Psych: Depression, Post traumatic stress disorder Musculoskeletal: None Derm: None - Past Surgical History Past Surgical History: Yes General: Hiatal hernia repair HEENT: Other - Present Medications Home Medications: Ambulatory Orders Medication Instructions Recorded Confirmed Acetaminophen [Acetaminophen Extra 500 mg PO QID PRN #50 tablet 05/11/21 Strength] Esomeprazole Magnesium 20 mg PO DAILY 05/11/21 05/11/21 Fluconazole [Diflucan] 150 mg PO Q3D 6 Days #2 tablet 05/11/21 Nystatin [Mycostatin] 10 ml PO QID 3 Days #120 ml 05/11/21 - Allergies Allergies/Adverse Reactions: Allergies Allergy/AdvReac Type Severity Reaction Status Date / Time prednisone Allergy swelling Verified 11/09/21 19:00 - Social History Does the pt smoke?: Yes Smoking Status: Current every day smoker Does the pt drink ETOH?: No Does the pt have substance abuse?: No - Immunizations Immunizations are current?: No Immunizations: TDAP >10years/unknown - POLST Patient has POLST: No PD ED PE NORMAL - General General: Alert and oriented X 3, No acute distress, Well developed/nourished - HEENT HEENT: Atraumatic, Moist mucous membranes, Pharynx benign, Other (Right pupil is irregularly shaped which patient and girlfriend state is chronic; Left pupil is round and reactive to light) - Neck Neck: Supple, no meningeal sign, No bony TTP - Cardiac Cardiac: RRR, No murmur, Strong equal pulses - Respiratory Respiratory: No respiratory distress, Clear bilaterally - Abdomen Abdomen: Normal bowel sounds, Soft, Non tender, Non distended - Back Back: No spinal TTP - Derm Derm: Warm and dry - Extremities Extremities: No edema - Neuro Neuro: Alert and oriented X 3, 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 He has since returned with his girlfriend. He states he is feeling better and girlfriend corroborates that he has been acting at his baseline.Patient's neuro exam appears normal for him. He does not take blood thinners. No recent trauma or injury. I have low concerns for an intracranial process and discussed risks and benefits of a head CT. Patient is comfortable with holding off on this at this time. His blood pressure here has been normal. Patient is reassured regarding his symptoms and a comfortable plan for discharge. He and his girlfriend are advised on return precautions. Departure - Departure Disposition: 01 Home, Self Care Clinical Impression: Cephalgia Qualifiers: Headache type: tension-type Headache chronicity pattern: acute headache Intractability: not intractable Qualified Code(s): G44.209 - Tension-type headache, unspecified, not intractable Condition: Stable Instructions: ED Headache Tension Comments: You were evaluated for a headache. Your vital signs are stable including having a normal blood pressure. Your exam is also reassuring and you do not have signs of a stroke or brain bleed. We have discussed the risks and benefits of obtaining imaging of your brain such as a head CT and we have agreed to hold off at this time as your symptoms have improved. Please continue with acetaminophen or ibuprofen as needed for headache. You should also get plenty of rest tonight and hydrate with water. If you have any worsening symptoms please consider return to the emergency department. Discharge Date/Time: 11/09/21 19:25
[2021-11-09 19:26] VITALS: BP 122/72
== END 2021-11-09 19:25 | disposition home or self-care (01) ==
LOC: ED 18:45
DX: G44.209 Tension-type headache, unspecified, not intractable (principal); R03.0 Elevated blood-pressure reading, without diagnosis of hypertension; Z87.820 Personal history of traumatic brain injury; F17.200 Nicotine dependence, unspecified, uncomplicated
CPT/HCPCS: 99283; 99284

== ENCOUNTER 2021-12-18 19:22 | Emergency (ER) | payer MEDICAID ==
[2021-12-18 19:28] VITALS: BP 123/69
[2021-12-18] MEDS ORDERED: IBUPROFEN 800 MG TABLET PO STA (20:19)
[2021-12-18] MEDS ORDERED: PENICILLIN VK 250 MG TABLET PO STA (20:19)
--- NOTE | 2021-12-18 20:21 | ED Physician Documentation ---
History of Present Illness - Stated complaint Stated Complaint: TOOTH PX - Chief complaint Chief Complaint: Heent - History obtained from History obtained from: Patient - History of Present Illness Timing: How many weeks ago (1) Pain level max: 6 Pain level now: 4 - Additonal information Additional information: 36-year-old male presents to the emergency department stating has right upper tooth has been hurting for the past 1 week. Noticed increased swelling and pain tonight. Worse with eating and drinking. Nothing makes it better. No fevers. No chills. He has not yet contacted his dentist. No abdominal pain. No vomiting or diarrhea. Review of Systems Constitutional: denies: Fever, Chills Respiratory: denies: Cough GI: denies: Vomiting, Diarrhea Skin: denies: Rash Musculoskeletal: denies: Neck pain, Back pain Neurologic: denies: Headache PD PAST MEDICAL HISTORY - Past Medical History Cardiovascular: None Respiratory: None Neuro: None Endocrine/Autoimmune: None GI: None : None HEENT: Chronic vision loss Psych: Depression, Post traumatic stress disorder Musculoskeletal: None Derm: None - Past Surgical History Past Surgical History: Yes General: Hiatal hernia repair HEENT: Other - Present Medications Home Medications: Ambulatory Orders Medication Instructions Recorded Confirmed Fluconazole [Diflucan] 1 tablet PO ONCE 1 Days #1 tablet 12/18/21 Ibuprofen [Motrin] 800 mg PO Q8H PRN #30 tablet 12/18/21 Penicillin V Potassium 500 mg PO Q6HR #40 tablet 12/18/21 - Allergies Allergies/Adverse Reactions: Allergies Allergy/AdvReac Type Severity Reaction Status Date / Time prednisone Allergy swelling Verified 12/18/21 19:27 - Social History Does the pt smoke?: Yes Smoking Status: Current every day smoker Does the pt drink ETOH?: No Does the pt have substance abuse?: No - Immunizations Immunizations are current?: No Immunizations: TDAP >10years/unknown - POLST Patient has POLST: No PD ED PE NORMAL - Vitals Vital signs reviewed: Yes - General General: Alert and oriented X 3, No acute distress - HEENT HEENT: Moist mucous membranes, Other (Poor dentition throughout, of the right upper canine tooth has swelling to the gingiva. There is no drainable abscess. No facial swelling. Normal phonation. No trismus.) - Neck Neck: Supple, no meningeal sign - Cardiac Cardiac: RRR - Respiratory Respiratory: No respiratory distress, Clear bilaterally - Derm Derm: Warm and dry - Extremities Extremities: No edema - Neuro Neuro: Alert and oriented X 3 Results - Vitals Vitals: Vital Signs - 24 hr 12/18/21 19:24 Temperature 36.7 C Heart Rate 93 Respiratory 14 Rate Blood Pressure 123/69 O2 Saturation 99 Oxygen O2 Source Room air PD MEDICAL DECISION MAKING - ED course Complexity details: considered differential, d/w patient ED course: Patient with dental caries and likely early infection. Will place on antibiotics and anti-inflammatories for home. Patient is well-appearing, nontoxic. Afebrile. Normal phonation. No trismus. He will follow-up with his dentist this week. No drainable abscess at this time. No facial cellulitis. Patient counseled regarding signs and symptoms for which I believe and urgent re-evaluation would be necessary. Patient with good understanding of and agreement to plan and is comfortable going home at this time This document was made in part using voice recognition software. While efforts are made to proofread this document, sound alike and grammatical errors may occur. Departure - Departure Disposition: 01 Home, Self Care Clinical Impression: Pain due to dental caries Condition: Good Instructions: ED Tooth Pain Follow-Up: your,dentist this week [Other] Prescriptions: Penicillin V Potassium 500 mg PO Q6HR #40 tablet Fluconazole [Diflucan] 1 tablet PO ONCE 1 Days #1 tablet Ibuprofen [Motrin] 800 mg PO Q8H PRN #30 tablet PRN Reason: PAIN &/OR FEVER Comments: Take all antibiotics until gone. Follow-up with your doctor for further care. Return if you worsen. Your prescriptions were sent to [facility]. Discharge Date/Time: 12/18/21 20:32
== END 2021-12-18 20:32 | disposition home or self-care (01) ==
LOC: ED 19:22
DX: K02.9 Dental caries, unspecified (principal); F17.200 Nicotine dependence, unspecified, uncomplicated
CPT/HCPCS: 99282; A9270

== ENCOUNTER 2022-03-11 14:28 | Outpatient (CLI) | payer MEDICAID ==
[2022-03-11 18:28] LABS: BASOPHILS # (AUTO) 0.1 10^3/uL (0.0-0.1); BASOPHILS % (AUTO) 1.4 %; EOSINOPHILS % (AUTO) 0.8 %; HCT - HEMATOCRIT 45.6 % (42.0-52.0); HGB - HEMOGLOBIN 15.4 g/dL (14.0-18.0); LYMPHOCYTES % (AUTO) 28.3 %; MEAN CORPUSCULAR HGB CONC 33.8 g/dL (32.0-36.0); MEAN CORPUSCULAR VOLUME 91.9 fL (80.0-94.0); MEAN PLATELET VOLUME 9.9 fL (7.4-11.4); MONOCYTES # (AUTO) 0.3 10^3/uL (0.0-1.0); MONOCYTES % (AUTO) 9.1 %; NEUTROPHILS # (AUTO) 2.1 10^3/uL (1.5-6.6); NEUTROPHILS % (AUTO) 60.1 %; PLT - PLATELET COUNT 271 10^3/uL (130-450); RED BLOOD COUNT 4.96 10^6/uL (4.70-6.10); RED CELL DISTRIBUTION WIDTH 11.8 % (12.0-15.0); WHITE BLOOD COUNT 3.5 x10^3/uL (4.8-10.8)
[2022-03-11 19:00] LABS: ALBUMIN 4.3 g/dL (3.2-5.5); ALBUMIN/GLOBULIN RATIO 1.3 (1.0-2.2); BILIRUBIN,TOTAL 0.6 mg/dL (0.2-1.0); CALCIUM 9.2 mg/dL (8.5-10.3); CREATININE 0.9 mg/dL (0.6-1.2); POTASSIUM 4.3 mmol/L (3.5-5.0); TOTAL PROTEIN 7.6 g/dL (6.7-8.2)
[2022-03-11 19:19] LABS: THYROID STIMULATING HORMONE 1.34 uIU/mL (0.34-5.60)
[2022-03-11 20:57] LABS: ESTIMATED AVERAGE GLUCOSE 94 mg/dL (70-100); HEMOGLOBIN A1c% 4.9 % (4.27-6.07)
== END 2022-03-11 14:29 | disposition home or self-care (01) ==
LOC: LAB.N 14:28
PROVIDERS: ATTEND Physician Assistant
DX: I73.00 Raynaud's syndrome without gangrene (principal); R68.89 Other general symptoms and signs; R73.01 Impaired fasting glucose
CPT/HCPCS: 36415; 80053; 81599; 83036; 84443; 85025; 86038

== ENCOUNTER 2022-10-12 13:34 | Emergency (ER) | payer MEDICAID ==
[2022-10-12 13:44] VITALS: BP 140/88; O2SAT 98
[2022-10-12 14:07] LABS: RAPID STREP SCREEN Negative (Negative)
--- OUTSIDE RECORDS SUMMARY | 2022-10-12 14:30 | EXTERNAL MEDICAL SUMMARY RPT | Continuity of Care Document ---
Author Name Unknown Address [address] [place] [address] Phone Organization [facility] Address [address] [place] [address] Phone Care Team Providers Care Tick Eradicator Name Role Phone Rosy Parra Unavailable Unavailable Problems date description facility 2022-08-04 10:18 Acute pharyngitis, unspecified [facility] 2022-08-05 01:22 Acute pharyngitis, [facility] Results/Labs test date facility value unit notes Social History date description facility 2022-08-04 00:00 Smokes tobacco daily (finding) [facility] Vital Signs date measurement value units 2022-08-04 00:00 heart_rate 79 /min 2022-08-04 00:00 o2_saturation 100 % 2022-08-04 00:00 temperature_metric 36.33 C 2022-08-04 00:00 temperature_standard 97.4 F 2022-08-04 00:00 weight_metric 97.06 kg 2022-08-04 00:00 weight_standard 213.98 lb
--- NOTE | 2022-10-12 15:06 | ED Physician Documentation ---
History of Present Illness - Stated complaint Stated Complaint: LUMPS IN BACK OF THROAT - Chief complaint Chief Complaint: Heent - History obtained from History obtained from: Patient - Additonal information Additional information: 37-year-old gentleman presents for the evaluation of something wrong with his throat for about a year. He feels like there are holes under his tonsils and a hole where his wisdom teeth were. Is making him quite anxious. He does have a history of anxiety and depression currently untreated. He was lost to follow-up with [facility]. He did have some fleeting suicidal ideation last night without plan. PD PAST MEDICAL HISTORY - Past Medical History Cardiovascular: None Respiratory: None Neuro: None Endocrine/Autoimmune: None GI: None : None HEENT: Chronic vision loss Psych: Depression, Post traumatic stress disorder Musculoskeletal: None Derm: None - Past Surgical History Past Surgical History: Yes General: Hiatal hernia repair HEENT: Other - Present Medications Home Medications: Ambulatory Orders Medication Instructions Recorded Confirmed Fluconazole [Diflucan] 1 tablet PO ONCE 1 Days #1 tablet 12/18/21 Ibuprofen [Motrin] 800 mg PO Q8H PRN #30 tablet 12/18/21 Penicillin V Potassium 500 mg PO Q6HR #40 tablet 12/18/21 Venlafaxine ER [Effexor ER] 37.5 mg PO DAILY #60 10/12/22 - Allergies Allergies/Adverse Reactions: Allergies Allergy/AdvReac Type Severity Reaction Status Date / Time prednisone Allergy swelling Verified 10/12/22 13:40 - Social History Does the pt smoke?: Yes Smoking Status: Current every day smoker Does the pt drink ETOH?: No Does the pt have substance abuse?: No - Immunizations Immunizations are current?: No Immunizations: TDAP >10years/unknown - POLST Patient has POLST: No PD ED PE NORMAL - Vitals Vital signs reviewed: Yes - General General: Alert and oriented X 3, No acute distress - HEENT HEENT: Other (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 Otherwise no visible abnormality of the oropharynx.) - Neck Neck: Supple, no meningeal sign, No bony TTP - Neuro Neuro: Alert and oriented X 3, Normal speech Results - Vitals Vitals: Vital Signs - 24 hr 10/12/22 13:40 Temperature 36.5 C Heart Rate 86 Respiratory 16 Rate Blood Pressure 140/88 H O2 Saturation 98 Oxygen O2 Source Room air - Labs Labs: Laboratory Tests 10/12/22 13:44 Group A Strep Rapid Negative PD Medical Decision Making - ED course ED course: He presents with ongoing issues with his throat. He has seen ENT for it in the past. No emergency medical condition there. He is very anxious about this and it is keeping him up and giving him vague SI. No plan. He would like to start an antidepressant. We did discuss the risks of antidepressants including worsening after initiation and he is understanding and his supportive significant other is at the bedside and all are agreeable that they would like to start. Venlafaxine was chosen as he would like to lose a little weight to. Departure - Departure Disposition: Home, Self Care Clinical Impression: Depression Qualifiers: Depression Type: major depressive disorder Major depression recurrence: recurrent Active/Remission status: currently active Major depression episode severity: moderate Qualified Code(s): F33.1 - Major depressive disorder, recurrent, moderate Condition: Good Record reviewed to determine appropriate education?: Yes Instructions: ED Depression Prescriptions: Venlafaxine ER [Effexor ER] 37.5 mg PO DAILY #60 Comments: Reasonable to contact Dr. Knapp's office for the referral to the ENT. As far as what is going on with your mind that we are starting an antidepressant, I would also encourage you to find a counselor, [email or web address] would be an option. Return if you worsen. Forms: PCP List
== END 2022-10-12 15:11 | disposition home or self-care (01) ==
LOC: ED 13:34
DX: F33.1 Major depressive disorder, recurrent, moderate (principal); F17.200 Nicotine dependence, unspecified, uncomplicated
CPT/HCPCS: 87070; 87430; 99283

== ENCOUNTER 2022-11-07 13:17 | Emergency (ER) | payer MEDICAID ==
--- NOTE | 2022-11-07 14:49 | ED Physician Documentation ---
PD HPI SKIN - Stated complaint Stated Complaint: - Chief complaint Chief Complaint: General - History obtained from History obtained from: Patient - History of Present Illness Timing - onset: How many weeks ago (1) Timing - duration: Weeks (1) Timing - details: Gradual onset, Still present Location: Other (right inguinal crease with slow development of patchy vesicular rash that is tender. No rash to back nor side of pelvis. Otherwise feeling okay.) Quality / character: Painful, Discolored (red), Vesicular. No: Draining Associated symptoms: No: Fever, Myalgias Similar symptoms before: Has not had sx before Review of Systems Constitutional: denies: Fever, Chills GI: denies: Abdominal Pain, Nausea, Vomiting Musculoskeletal: denies: Back pain PD PAST MEDICAL HISTORY - Past Medical History Cardiovascular: None Respiratory: None Neuro: None Endocrine/Autoimmune: None GI: None : None HEENT: Chronic vision loss Psych: Depression, Post traumatic stress disorder Musculoskeletal: None Derm: None - Past Surgical History Past Surgical History: Yes General: Hiatal hernia repair HEENT: Other - Present Medications Home Medications: Ambulatory Orders Medication Instructions Recorded Confirmed Doxycycline Hyclate 100 mg PO BID 7 Days #14 cap 11/07/22 Mupirocin 2% Oint [Bactroban 2% 1 applic TOP TID #15 gm 11/07/22 Oint] - Allergies Allergies/Adverse Reactions: Allergies Allergy/AdvReac Type Severity Reaction Status Date / Time prednisone Allergy swelling Verified 11/07/22 13:30 - Social History Does the pt smoke?: Yes Smoking Status: Current every day smoker Does the pt drink ETOH?: No Does the pt have substance abuse?: No - Immunizations Immunizations are current?: No Immunizations: TDAP >10years/unknown - POLST Patient has POLST: No PD ED PE NORMAL - Vitals Vital signs reviewed: Yes - General General: Alert and oriented X 3, Well developed/nourished - Derm Derm: Normal color, Warm and dry, Other (right inguinal crease area tih 3-4 cm area of red based rash with multiple small pustules. No other rash areas on side nor back of pelvis. Mild inguinal adenopathy.) Results - Vitals Vitals: Vital Signs - 24 hr 11/07/22 11/07/22 13:26 15:49 Temperature 37 C 36.8 C Heart Rate 83 82 Respiratory 15 16 Rate Blood Pressure 122/74 124/72 O2 Saturation 98 100 Oxygen O2 Source Room air - Labs Labs: Microbiology 11/07/22 15:09 Wound Culture - Preliminary Abdomen PD Medical Decision Making - ED course Complexity details: considered differential (patch of rash with red base and mutliple vesicular/small pustular lesions right inguinal area. No other areas seen around pelvis nor back. Could be shingles by appearance but does not have distribution for it, too localized. More c/w folliculitis. nicked several of the pustules for culture. ), d/w patient Departure - Departure Disposition: Home, Self Care Clinical Impression: Folliculitis Condition: Stable Record reviewed to determine appropriate education?: Yes Instructions: ED Folliculitis Follow-Up: Sherrill Hassan PA [Primary Care Provider] - Prescriptions: Mupirocin 2% Oint [Bactroban 2% Oint] 1 applic TOP TID #15 gm Doxycycline Hyclate 100 mg PO BID 7 Days #14 cap Comments: The appearance of the rash could look like a shingles patch as you are concerned about. However does not really have the distribution for that. I think it is more of a localized bacterial infection of the hair follicles called folliculitis. Clean the area with soap and water to 3 times daily and apply mupirocin antibiotic ointment to the area lightly. In addition we will go with doxycycline antibiotic orally for the next week. Tylenol ibuprofen as needed for pain or discomfort. We did do a culture of the fluid from the vesicles. This should result in about 2 days. We will call you if we need to change the antibiotic choice based on that. I sent your prescription to your preferred pharmacy. Recheck if not improving well over the next 2 or 3 days and resolved by 3 to 5 days. Forms: PCP List Discharge Date/Time: 11/07/22 15:48
[2022-11-07] MEDS ORDERED: DOXYCYCLINE 100 MG TABLET PO STA (15:11)
[2022-11-07] MEDS ORDERED: MUPIROCIN 2% OINT 1 GM TOP STA (15:11)
[2022-11-07 15:58] VITALS: BP 124/72; O2SAT 100
== END 2022-11-07 15:48 | disposition home or self-care (01) ==
LOC: ED 13:17
DX: L73.9 Follicular disorder, unspecified (principal); F17.200 Nicotine dependence, unspecified, uncomplicated
CPT/HCPCS: 87070; 87077; 87181; 87205; 99283; A9270

== ENCOUNTER 2022-12-16 09:27 | Emergency (ER) | payer MEDICAID ==
[2022-12-16 09:44] VITALS: O2SAT 99
--- NOTE | 2022-12-16 10:37 | XRAY Report ---
PROCEDURE: Chest 1 View X-Ray INDICATIONS: R CP TECHNIQUE: One view of the chest was acquired. COMPARISON: 09/10/2021. FINDINGS: Surgical changes and devices: None. Lungs and pleura: No pleural effusions or pneumothorax. Lungs are clear. Mediastinum: Mediastinal contours appear normal. Heart size is normal. Bones and chest wall: No suspicious bony lesions. Overlying soft tissues appear unremarkable. IMPRESSION: No acute cardiopulmonary process. Reviewed by: Umang Kerr MD on 12/16/2022 10:36 AM PDT Approved by: Umang Kerr MD on 12/16/2022 10:36 AM PDT Station ID: [id number]
--- NOTE | 2022-12-16 10:40 | ED Physician Documentation ---
PD HPI CHEST PAIN - Stated complaint Stated Complaint: RT SIDE PX - Chief complaint Chief Complaint: Back Pain - History obtained from History obtained from: Patient - Additional information Additional information: Patient is a 37-year-old male with no significant prior medical history presenting for evaluation of right-sided rib pain that has been present for the past 2 days. Patient states he woke up with the pain. Denies any known injury or trauma. Patient states that he only feels the pain when changing positions such as turning over at night or going from laying to sitting.He denies wor sening pain with taking a deep breath. The pain does not radiate elsewhere. He has not tried anything for the pain.Denies any history of PE or DVT. No known risk factors for coronary artery disease. Review of Systems Constitutional: denies: Fever Cardiac: reports: Chest pain / pressure Respiratory: denies: Dyspnea, Cough GI: denies: Abdominal Pain PD PAST MEDICAL HISTORY - Past Medical History Past Medical History: Yes Cardiovascular: None Respiratory: None Neuro: None Endocrine/Autoimmune: None GI: None : None HEENT: Chronic vision loss Psych: Depression, Post traumatic stress disorder Musculoskeletal: None Derm: None - Past Surgical History Past Surgical History: Yes General: Hiatal hernia repair HEENT: Other - Present Medications Home Medications: Ambulatory Orders Medication Instructions Recorded Confirmed No Known Home Medications 12/16/22 12/16/22 - Allergies Allergies/Adverse Reactions: Allergies Allergy/AdvReac Type Severity Reaction Status Date / Time prednisone Allergy swelling Verified 12/16/22 09:41 - Social History Does the pt smoke?: Yes Smoking Status: Current every day smoker Does the pt drink ETOH?: No Does the pt have substance abuse?: No - Immunizations Immunizations are current?: No Immunizations: TDAP >10years/unknown - POLST Patient has POLST: No PD ED PE NORMAL - General General: Alert and oriented X 3, No acute distress, Well developed/nourished - HEENT HEENT: Atraumatic, Moist mucous membranes, Pharynx benign - Neck Neck: Supple, no meningeal sign - Cardiac Cardiac: RRR, No murmur, Strong equal pulses - Respiratory Respiratory: No respiratory distress, Clear bilaterally - Abdomen Abdomen: Soft, Non tender - Extremities Extremities: No edema - Neuro Neuro: Normal speech PD ED PE EXPANDED - Visual Whole body visual: 1 - tenderness Results - Vitals Vitals: Vital Signs - 24 hr 12/16/22 12/16/22 09:37 10:57 Temperature 37.1 C Heart Rate 97 91 Respiratory 15 15 Rate Blood Pressure 137/86 H 134/87 H O2 Saturation 99 99 Oxygen O2 Source Room air PD Medical Decision Making - ED course Complexity details: reviewed results, re-evaluated patient, d/w patient ED course: Patient has point tenderness to a very specific spot on the right lateral chest wall with no visible deformities or rash. Chest x-ray which I reviewed shows normal heart size as well as no signs of pneumothorax effusion or mass. Patient has no risk factors for coronary artery disease and this would be very atypical for cardiac etiology. PERC negative. Discussed continued supportive care as well as concerning symptoms to return for. Departure - Departure Disposition: 01 Home, Self Care Clinical Impression: Right-sided chest pain Condition: Stable Instructions: ED Strain Chest Wall Comments: Your chest x-ray is clear and I do not see signs of an infection or mass on your chest x-ray. Please continue with ibuprofen or acetaminophen as needed for pain. If the pain worsens or moves to another area please consider return to the emergency department. Discharge Date/Time: 12/16/22 10:58
[2022-12-16 10:59] VITALS: BP 134/87
== END 2022-12-16 10:58 | disposition home or self-care (01) ==
LOC: ED 09:27
DX: R07.89 Other chest pain (principal); F17.200 Nicotine dependence, unspecified, uncomplicated
CPT/HCPCS: 99283

== ENCOUNTER 2023-07-05 10:49 | Emergency (ER) | payer MEDICAID ==
[2023-07-05 11:02] VITALS: BP 120/78; O2SAT 98
--- NOTE | 2023-07-05 11:15 | ED Physician Documentation ---
History of Present Illness - Stated complaint Stated Complaint: TOOTH PX,SWELLING - Chief complaint Chief Complaint: Heent - Additonal information Additional information: 37-year-old male with overall poor dentition presents emergency department for dental infection. Patient has multiple missing broken teeth, primarily his upper 4 middle teeth. Patient says that he does have a dentist in [facility] he said that he is going to prioritize make an appoint with them as soon as possible but just wanted to at least get started on some antibiotics. He has had no fevers or chills he has not taken any Tylenol ibuprofen today for the pain no nausea or vomiting. PD PAST MEDICAL HISTORY - Past Medical History Past Medical History: Yes Cardiovascular: None Respiratory: None Neuro: None Endocrine/Autoimmune: None GI: None : None HEENT: Chronic vision loss Psych: Depression, Post traumatic stress disorder Musculoskeletal: None Derm: None - Past Surgical History Past Surgical History: Yes General: Hiatal hernia repair HEENT: Other - Present Medications Home Medications: Ambulatory Orders Medication Instructions Recorded Confirmed Amox/Clav 875/125 [Augmentin 1 tablet PO Q12H 10 Days #20 tablet 07/05/23 875/125 Tab] Ascorbic Acid [Vitamin C] 1,000 mg PO DAILY 07/05/23 07/05/23 Lactobacillus Combination No.4 1 each PO DAILY 07/05/23 07/05/23 [Probiotic] Tumeric/Ging/[place]/Oreg/Capryl 1 each PO DAILY 07/05/23 07/05/23 [Candicidal Capsule] - Allergies Allergies/Adverse Reactions: Allergies Allergy/AdvReac Type Severity Reaction Status Date / Time prednisone Allergy swelling Verified 07/05/23 10:58 - Social History Does the pt smoke?: No Smoking Status: Former smoker Does the pt drink ETOH?: No Does the pt have substance abuse?: No - Immunizations Immunizations are current?: No Immunizations: TDAP >10years/unknown - POLST Patient has POLST: No PD ED PE NORMAL - Vitals Vital signs reviewed: Yes - General General: Alert and oriented X 3, No acute distress, Well developed/nourished - HEENT HEENT: Atraumatic PD ED PE EXPANDED - HEENT HEENT: Dental decay. No: Dentition normal, Dental abscess, Oral lesions / sores, Lip laceration (front four teeth appear to be missing vs broken) Results - Vitals Vitals: Vital Signs - 24 hr 07/05/23 10:56 Temperature 36.4 C L Heart Rate 87 Respiratory 15 Rate Blood Pressure 120/78 O2 Saturation 98 Oxygen O2 Source Room air PD Medical Decision Making - ED course ED course: Patient presents for dental pain due to multiple broken teeth at top of mouth. Patient not immunosuppressed, afebrile and well appearing with patent airway, have low suspicion for deep space infection or any concern for airway compromise. Based on history, physical, and work up. No evidence of RPA, CRM ANALYST, Ludwigs angina, periapical abscess. Instructed patient to continue to treat pain with ibuprofen/acetaminophen until they see a dentist. Started pt on Augmentin Patient discharged home and will follow up with dentist. Discussed return precautions for odontogenic infections and other dental pain emergencies. Departure - Departure Disposition: 01 Home, Self Care Clinical Impression: Dental infection Instructions: ED Abscess Dental, ED Abscess Tooth Prescriptions: Amox/Clav 875/125 [Augmentin 875/125 Tab] 1 tablet PO Q12H 10 Days #20 tablet Comments: Thank you for trusting us with your care. It does appear that you have a dental infection and it is very important that you follow-up with your dentist as soon as possible to have those teeth removed as we discussed continuing to prescribe antibiotics can alleviate the infection initially but it is going to get recurrently infected. Is very important that you get this taken care of as soon as possible I sent a prescription of Augmentin which is an antibiotic that we started you on here in the emergency department to your preferred pharmacy [facility] in [place] please pick this up and start taking this as soon as possible. You can alternate between Tylenol ibuprofen for pain and discomfort and as well as apply heat to your mouth for any pain or discomfort. Please come back to the emergency department for starting develop any worsening symptoms, fevers or chills, worsening facial swelling. Forms: PCP List Discharge Date/Time: 07/05/23 12:07
[2023-07-05] MEDS: ACETAMINOPHEN 325 MG TABLET PO STA (12:02)
[2023-07-05] MEDS: AMOX/CLAV 875 MG/125 MG TABLET PO STA (12:02)
[2023-07-05] MEDS: IBUPROFEN 600 MG TABLET PO STA (12:02)
== END 2023-07-05 12:07 | disposition home or self-care (01) ==
LOC: ED 10:49
DX: K04.7 Periapical abscess without sinus (principal); Z87.891 Personal history of nicotine dependence; Z79.899 Other long term (current) drug therapy
CPT/HCPCS: 99283; A9270

== ENCOUNTER 2023-07-21 03:07 | Emergency (ER) | payer MEDICAID ==
[2023-07-21 03:21] VITALS: BP 145/91; O2SAT 99
--- NOTE | 2023-07-21 03:28 | ED Physician Documentation ---
PD HPI HEENT - Stated complaint Stated Complaint: TOOTH PX - Chief complaint Chief Complaint: Heent - History obtained from History obtained from: Patient - Additional information Additional information: Patient is a 37-year-old male presenting for evaluation of dental infection. Patient states that he has multiple missing broken teeth and that he has had pain associated with left upper teeth for several weeks. He was seen here on July 04 and given a course of Augmentin. He reports that his symptoms did improve with this but then 2 days ago he started to have discomfort again. He has a dentist appointment next . No difficulty with swallowing. He is having trouble sleeping.No nausea or vomiting or fevers. Review of Systems Constitutional: denies: Fever Throat: reports: Dental pain / toothache PD PAST MEDICAL HISTORY - Past Medical History Cardiovascular: None Respiratory: None Neuro: None Endocrine/Autoimmune: None GI: None : None HEENT: Chronic vision loss Psych: Depression, Post traumatic stress disorder Musculoskeletal: None Derm: None - Past Surgical History Past Surgical History: Yes General: Hiatal hernia repair HEENT: Other - Present Medications Home Medications: Ambulatory Orders Medication Instructions Recorded Confirmed Amox/Clav 875/125 [Augmentin 1 tablet PO Q12H 10 Days #20 tablet 07/05/23 875/125 Tab] Ascorbic Acid [Vitamin C] 1,000 mg PO DAILY 07/05/23 07/05/23 Lactobacillus Combination No.4 1 each PO DAILY 07/05/23 07/05/23 [Probiotic] Tumeric/Ging/[place]/Oreg/Capryl 1 each PO DAILY 07/05/23 07/05/23 [Candicidal Capsule] HYDROcod/ACETAM 5/325 [[place] 5/325] 1 tablet PO Q6H PRN #8 tablet 07/21/23 clindamycin HCL [Cleocin HCl] 300 mg PO QID #28 cap 07/21/23 - Allergies Allergies/Adverse Reactions: Allergies Allergy/AdvReac Type Severity Reaction Status Date / Time prednisone Allergy swelling Verified 07/21/23 03:13 - Social History Does the pt smoke?: No Smoking Status: Former smoker Does the pt drink ETOH?: No Does the pt have substance abuse?: No - Immunizations Immunizations are current?: No Immunizations: TDAP >10years/unknown - POLST Patient has POLST: No PD ED PE NORMAL - General General: Alert and oriented X 3, No acute distress, Well developed/nourished - HEENT HEENT: Atraumatic, Moist mucous membranes, Pharynx benign, Other (No oral swelling, normal speech, Multiple missing or eroded teeth with significant decay throughout). No: Dentition benign - Neuro Neuro: Normal speech PD ED PE EXPANDED - HEENT HEENT Visual: 1 - tenderness Results - Vitals Vitals: Vital Signs - 24 hr 07/21/23 03:13 Temperature 36.3 C L Heart Rate 87 Respiratory 18 Rate Blood Pressure 145/91 H O2 Saturation 99 Oxygen O2 Source Room air PD Medical Decision Making - ED course ED course: Patient presenting for dental pain for the past 2 days. Was seen here several weeks ago and given a course of Augmentin which she states helped his symptoms but they have now recurred. He is awaiting for his next appointment next week. No signs of fluctuance or drainable abscess. No signs of deep space infection. Normal speech. No trismus. Will start patient on clindamycin and also given a small amount of narcotic pain medication. Patient counseled on strict return precautions for any worsening symptoms and plans to follow-up with dentist as already scheduled. Departure - Departure Disposition: 01 Home, Self Care Clinical Impression: Dental infection Condition: Stable Instructions: ED Abscess Dental Prescriptions: clindamycin HCL [Cleocin HCl] 300 mg PO QID #28 cap HYDROcod/ACETAM 5/325 [[place] 5/325] 1 tablet PO Q6H PRN #8 tablet PRN Reason: Pain Comments: We are starting you on a course of a different antibiotic. Please make sure to take the antibiotic as directed. I have also sent a small amount of narcotic pain medication to the pharmacy. Your prescriptions were sent to [facility] in [place]. It is very important that you follow-up with a dentist. When it comes to dental problems like yours, the emergency department can only offer a short-term solution to your long-term problem. A couple of low cost options for dental care include: [facility] in [place], calls [phone] for an appointment Or [facility] in [place], call [phone] for an appointment. Please keep your dental appointment coming up. I am prescribing a short course of narcotic pain medication for you. These are potentially dangerous and addictive medications that should be used carefully. These medications may constipate you. Take an pzak-smp-ufoqpog stool softener (docusate) twice daily with plenty of water while taking these medications. If you go 24 hours without a bowel movement, take pyqz-nbq-[id number] miralax, per package instructions. Do not drink or drive while taking these medications. If you received narcotic or sedating medications while in the emergency d epartment, do not drive for 24 hours. Store this medication in a safe, secure place and out of reach of children. It is a violation of federal law to give or sell this medication to another person or to use in a manner other than prescribed. The ED will not refill narcotic prescriptions, including prescriptions lost or stolen. To dispose of unwanted medications: 1. [facility] at [address] in [place] has a medication drop box. They accept prescription medications (in pill form) Tuesday through Tuesday 9:00 a.m. to 5:00 p.m. 2. The [facility] accepts prescription medications (in pill form only) for disposal year round. Call for more information. 3. Contact the [facility] for the next [facility] sponsored prescription drug collection event. , [phone], or [phone]; Note that many narcotic pain relievers also contain Tylenol/acetaminophen. Please ensure that your total dose of acetaminophen from all sources does not exceed 3 g (3000 mg) per day. Return to the emergency department with any worsening. Forms: PCP List Discharge Date/Time: 07/21/23 03:36
[2023-07-21] MEDS: CLINDAMYCIN 150 MG CAPSULE PO STA (03:31)
[2023-07-21] MEDS: HYDROcod/ACET 5/325 Prepack 4 PO STA (03:31)
== END 2023-07-21 03:36 | disposition home or self-care (01) ==
LOC: ED 03:07
DX: K04.7 Periapical abscess without sinus (principal); Z87.891 Personal history of nicotine dependence; Z79.899 Other long term (current) drug therapy
CPT/HCPCS: 99283

== ENCOUNTER 2023-10-14 07:35 | Emergency (ER) | payer MEDICAID ==
[2023-10-14 07:42] VITALS: BP 144/87; O2SAT 97
--- NOTE | 2023-10-14 08:00 | ED Physician Documentation ---
History of Present Illness - Stated complaint Stated Complaint: RASH - Chief complaint Chief Complaint: Wound - History obtained from History obtained from: Patient - Additonal information Additional information: The patient comes to the emergency department chief complaint of a rash on the end of his penis for the last 2 or 3 days. He states it anderson a little but is not terribly painful. He states is worse if he takes a shower or is out walking around. He does not have the rash anywhere else. He denies exposure to anybody with a similar rash. He has no history of herpes. He states he has been with the same woman for 9 years and that he has certain he did not get anything from her. He denies any fevers or chills. He denies any penile discharge. No abdominal pain or scrotal swelling. The patient does note an unrelated fashion that he has been occasionally having a left-sided headache in the morning and feels throbbing. He sometimes gets visual phenomena. He states this does not last very long once he has been up and around, it seems to go away on its own. However, he is concerned about possible hypertension. He states that he has had high blood pressure readings previously but does not have a diagnosis of hypertension. No other symptoms in relation to this. He does not currently have a headache. No other complaints at this time. PD PAST MEDICAL HISTORY - Past Medical History Cardiovascular: None Respiratory: None Neuro: None Endocrine/Autoimmune: None GI: None : None HEENT: Chronic vision loss Psych: Depression, Post traumatic stress disorder Musculoskeletal: None Derm: None - Past Surgical History Past Surgical History: Yes General: Hiatal hernia repair HEENT: Other - Present Medications Home Medications: Ambulatory Orders Medication Instructions Recorded Confirmed Amox/Clav 875/125 [Augmentin 1 tablet PO Q12H 10 Days #20 tablet 07/05/23 875/125 Tab] Ascorbic Acid [Vitamin C] 1,000 mg PO DAILY 07/05/23 07/05/23 Lactobacillus Combination No.4 1 each PO DAILY 07/05/23 07/05/23 [Probiotic] Tumeric/Ging/[place]/Oreg/Capryl 1 each PO DAILY 07/05/23 07/05/23 [Candicidal Capsule] HYDROcod/ACETAM 5/325 [[place] 5/325] 1 tablet PO Q6H PRN #8 tablet 07/21/23 clindamycin HCL [Cleocin HCl] 300 mg PO QID #28 cap 07/21/23 - Allergies Allergies/Adverse Reactions: Allergies Allergy/AdvReac Type Severity Reaction Status Date / Time prednisone Allergy swelling Verified 10/14/23 07:38 - Social History Does the pt smoke?: No Smoking Status: Never smoker Does the pt drink ETOH?: No Does the pt have substance abuse?: No - Immunizations Immunizations are current?: No Immunizations: TDAP >10years/unknown - POLST Patient has POLST: No PD ED PE NORMAL - Vitals Vital signs reviewed: Yes - General General: Alert and oriented X 3, No acute distress, Well developed/nourished - HEENT HEENT: Atraumatic, EOMI, Moist mucous membranes - Neck Neck: Supple, no meningeal sign - Respiratory Respiratory: No respiratory distress - Male Male : Systems Accountant present (Nurse Jorge), Other (Normal male genitalia, circumcised. Mild, fine maculopapular rash localized to the room just proximal to the glans. Scattered occasional lesions on the edge of the glans. No ulceration. No pustules. No drainage. No d/c from urethral meatus. No lesions on the shaft. O/w nl exam.) - Derm Derm: Normal color, Warm and dry - Extremities Extremities: No deformity - Neuro Neuro: Alert and oriented X 3 - Psych Psych: Normal mood, Normal affect Results - Vitals Vitals: Vital Signs - 24 hr 10/14/23 07:38 Temperature 36.5 C Heart Rate 95 Respiratory 16 Rate Blood Pressure 144/87 H O2 Saturation 97 Oxygen O2 Source Room air PD Medical Decision Making - ED course Complexity details: considered differential, d/w patient ED course: I discussed with the patient that his rash is very mild and nonspecific. It is possible that it is a mild herpes outbreak but the patient is adamant that he has not had any exposure to this and does not want presumptive treatment. He is convinced that the rash is probably from wearing a heavier blanket than usual at night and getting too hot. He is open to symptomatic treatment of the rash and we have discussed ointments, barrier creams, and cornstarch. He has expressed a concern about possible Shaila but I do not feel that this rash has the appearance of Shaila. As far as the patient's blood pressure, he is mildly elevated here in the ED. I have encouraged him to have some blood pressure checks on a regular basis and have given him information about where to go to have this done. We have discussed that if his blood pressure is consistently over 140/95 then he needs to go and see his primary to discuss treatment for hypertension. Patient is stable for discharge. Departure - Departure Disposition: 01 Home, Self Care Clinical Impression: Penile rash Condition: Stable Instructions: ED Dermatitis Non Specific Rash, ED Hypertension Poss Comments: The rash on your penis is mild and appears nonspecific this time. A rash with this appearance can be due to a very mild herpes outbreak, but it also could just be due to irritation, either from temperature or from friction or surrounding materials. All of the above possibilities are self-limited and will ultimately resolve on their own. Herpes is caused by a virus and as such, becomes chronic with periodic outbreaks happening. However, given that you have been with the same partner for an extended period of time and she has not had symptoms, you are confident that this is not the cause of the rash. As such, the best treatment then would be barrier creams or ointments to help soothe and protect the area from what ever is causing the irritation and allow the rash to go away. You can pharmacy picking technician ointments such as Bag [place] or A&D ointment over-the- counter, or you could get an [id number]-[id number] barrier cream such as Desitin, Calmoseptine, or Leon's Butt paste. Cornstarch can also be helpful as an alternative to the more moist ointments and creams and you can get this at the store as well. As far as your blood pressure, your pressure was mildly high today at 144/87. It is not clear what you have been running at home and if this is the cause of the headaches you sometimes get in the morning, but as we discussed, you can either get your own blood pressure cuff for at home [id number], or you can go to freestanding pharmacies like [facility] or to the [facility] station to have your blood pressure checked. If you are consistently running above 140/95, then you should talk to your primary about whether you should be on blood pressure medication.
== END 2023-10-14 08:04 | disposition home or self-care (01) ==
LOC: ED 07:35
DX: R21 Rash and other nonspecific skin eruption (principal); R03.0 Elevated blood-pressure reading, without diagnosis of hypertension
CPT/HCPCS: 99281; 99283